=== PATIENT | female | born 1975 | race Caucasian/White ===

== ENCOUNTER → 2016-05-15 | Outpatient (CLI) | payer BC, OTHER ==
--- NOTE | 2016-05-15 16:55 | MAMMOGRAPHY REPORT ---
BILATERAL DIGITAL SCREENING MAMMOGRAM TOMOSYNTHESIS WITH CAD: 05/15/2016 CLINICAL HISTORY: Routine screening. Patient has no complaints. TECHNIQUE: Bilateral breast tomosynthesis in addition to standard 2D mammography was performed. Curr ent study was also evaluated with a Computer Aided Detection (CAD) system. COMPARISON: No prior exams were available for comparison. BREAST COMPOSITION: The tissue of both breasts is heterogeneously dense, which may obscure small ma sses. FINDINGS: There are a few scattered benign-appearing round and punctate microcalcifications in the b reasts. However, there is a very faint grouping of microcalcifications in the far posterior 1:00 ri ght breast that warrant additional spot magnification views. No other suspicious mass, architectural distortion or cluster of microcalcifications is seen bilater ally. IMPRESSION: ACR BI-RADS CATEGORY 0: INCOMPLETE EVALUATION: NEED ADDITIONAL IMAGING EVALUATION The there he faint grouping of microcalcifications in the 1:00 far posterior right breast needs rajinder tional evaluation. The patient will be called to schedule an appointment. Approximately 10% of breast cancers are not detected with mammography. A negative mammographic repor t should not delay biopsy if a clinically suggestive mass is present. Marie Stewart M.D. ay/:05/15/2016 16:25:32 Park Activities Coordinator: Lucina RIDLEY(John)(M), [facility] letter sent: Addl Imaging 0 BI-RADS Code: ACR BI-RADS Category 0: Incomplete Evaluation: Need Additional Imaging Evaluation
== END | disposition home or self-care (01) ==
LOC: C.MAMM 13:41
PROVIDERS: ATTEND Family Medicine
DX: Z12.31 Encounter for screening mammogram for malignant neoplasm of breast (principal); R92.0 Mammographic microcalcification found on diagnostic imaging of breast

== ENCOUNTER → 2016-05-23 | Outpatient (CLI) | payer BC, OTHER ==
--- NOTE | 2016-05-23 14:52 | MAMMOGRAPHY REPORT ---
UNILATERAL RIGHT DIGITAL DIAGNOSTIC MAMMOGRAM: 05/23/2016 CLINICAL HISTORY: Callback from screening mammogram for right breast calcifications. TECHNIQUE: Spot magnification right cc and ML views were obtained. COMPARISON: Comparison is made to exam dated: 05/15/2016 mammogram - [facility]. BREAST COMPOSITION: The tissue of the right breast is heterogeneously dense, which may obscure smal l masses. FINDINGS: Spot magnification views of the right breast demonstrate a small 6 mm cluster of faint pu nctate calcifications in the right upper inner quadrant far posteriorly. Given no priors to documen t stability, the calcifications are indeterminant. Recommend attempt at stereotactic biopsy for fur ther evaluation, although the calcifications may be too far posterior to biopsy with stereotactic gu idance. IMPRESSION: ACR BI-RADS CATEGORY 4: SUSPICIOUS Small 6 mm cluster of punctate calcifications in the right upper inner quadrant. The calcifications are indeterminate and biopsy is recommended for further evaluation. Recommend attempt at stereotac tic biopsy, although the calcifications may be too far posterior to biopsy with stereotactic guidanc e. A phone call was made to the physician's office to confirm faxed results were received. The patient has been verbally notified of the results. She tentatively scheduled the biopsy before leaving the department. Approximately 10% of breast cancers are not detected with mammography. A negative mammographic repor t should not delay biopsy if a clinically suggestive mass is present. Radha Mares M.D. ah/:05/23/2016 12:24:01 Supervisor Farm Equipment Maintenance: Jamila RIDLEY(John)(M), [facility] letter sent: Abnormal 4/5 BI-RADS Code: ACR BI-RADS Category 4: Suspicious
== END | disposition home or self-care (01) ==
LOC: C.MAMM 11:33
PROVIDERS: ATTEND Family Medicine
DX: R92.0 Mammographic microcalcification found on diagnostic imaging of breast (principal); R92.1 Mammographic calcification found on diagnostic imaging of breast

== ENCOUNTER → 2017-01-15 | Outpatient (CLI) | payer OTHER ==
--- NOTE | 2017-01-16 12:38 | MAMMOGRAPHY REPORT ---
UNILATERAL RIGHT DIGITAL DIAGNOSTIC MAMMOGRAM TOMOSYNTHESIS WITH CAD: 01/15/2017 CLINICAL HISTORY: 41-year-old woman presents for follow-up [facility] She underwent surgical excisional biopsy with preoperative needle and wire localization. Pathology results yielded "benign breast tissue with microglandular adenosis, columnar cell hyperpl merle with calcifications and sclerosing adenosis. No significant or convincing atypia or malignancy identified.". TECHNIQUE: Right breast tomosynthesis in addition to standard 2D mammography was performed. Spot mag nification right CC and ML views were also obtained. Current study was also evaluated with a Compute r Aided Detection (CAD) system. COMPARISON: Comparison is made to exams dated: 06/05/2016 stereotactic biopsy, 05/23/2016 mammogram, an d 05/15/2016 mammogram - . BREAST COMPOSITION: There are scattered areas of fibroglandular density in the right breast. FINDINGS: A linear scar marker overlies the 3:00 middle one third of the right breast, denoting the area of recent surgical excisional biopsy. There is an ovoid area of fat necrosis in the 3:00 development expert ior right breast at the surgical site. On the full-field right CC projection, faint amorphous microc alcifications in a cluster are seen in the far posterior medial aspect of the breast for which additi onal spot magnification views were obtained. No other obvious mass, focal area of architectural dist ortion, asymmetry or other calcifications are identified. The spot magnification views of the right breast demonstrate a 5 mm cluster of amorphous microcalcifi cations in the upper inner posterior breast. Based on the spot magnification CC view, these microcal cifications appear very similar to those identified on the 05/23/2016 spot magnification view. These microcalcifications are located 17 mm medial to the lucent fat necrosis denoting the surgical site. Review of the specimen radiograph does not definitely demonstrate microcalcifications from this repr esentative cluster despite the fact that some calcifications were identified at pathology. Based on the concern for under sampling error, would recommend repeat attempt at surgical biopsy, considering these microcalcifications were not amenable to stereotactic biopsy. IMPRESSION: ACR BI-RADS CATEGORY 4: SUSPICIOUS A faint 5 mm cluster of amorphous microcalcifications is seen in the upper inner far posterior right breast, 17 mm medial to the fat necrosis representing the surgical biopsy site. As no aircraft sales representative microcalcifications are definitely seen within the specimen radiograph from 07/31/2016, would recomm end surgical consultation for attempt at repeat surgical biopsy, given that these microcalcifications were not amenable to stereotactic biopsy. These results and recommendations were discussed with the patient at the time of the exam. Approximately 10% of breast cancers are not detected with mammography. A negative mammographic report should not delay biopsy if a clinically suggestive mass is present. Marie Stewart M.D. ay/:01/15/2017 15:59:54 Ecommerce Project Manager: Jamila Oseguera, letter sent: Abnormal 4/5 BI-RADS Code: ACR BI-RADS Category 4: Suspicious
== END | disposition home or self-care (01) ==
LOC: C.MAMM 09:44
PROVIDERS: ATTEND Surgery
DX: R92.8 Other abnormal and inconclusive findings on diagnostic imaging of breast (principal); N64.89 Other specified disorders of breast

== ENCOUNTER → 2017-07-30 | Outpatient (CLI) | payer OTHER ==
--- NOTE | 2017-07-30 15:22 | MAMMOGRAPHY REPORT ---
BILATERAL DIGITAL DIAGNOSTIC MAMMOGRAM TOMOSYNTHESIS WITH CAD: 07/30/2017 CLINICAL HISTORY: The patient is status post surgical excision of calcifications in the right upper o uter quadrant in February 2017 which yielded benign pathology. The patient is also due for annual ma mmography of the left breast. The patient reports no current complaints. TECHNIQUE: Breast tomosynthesis in addition to standard 2D mammography was performed. Current study was also evaluated with a Computer Aided Detection (CAD) system. Bilateral CC and MLO 2D and tomosyn thesis images were obtained. COMPARISON: Comparison is made to exams dated: 01/15/2017 mammogram, 06/05/2016 stereotactic biopsy, mammogram, and 05/15/2016 mammogram - [facility]. BREAST COMPOSITION: The tissue of both breasts is heterogeneously dense, which may obscure small mas ses. FINDINGS: A linear scar marker denotes a scar on the right upper inner breast. There are new expecte d postsurgical changes in the right upper inner quadrant from prior benign excisional biopsy, includi ng mild architectural distortion at the surgical bed. A few punctate benign-appearing calcifications are seen along the scar marker, which are shown to be dermal in location on the tomosynthesis images and are therefore benign. The remainder of both breasts demonstrate no suspicious masses, calcifications, or areas of websphere commerce architect ural distortion. Other scattered benign-appearing calcifications are not significantly changed. Mul tiple round/oval partially circumscribed and partially obscured masses are seen within the left upper outer breast, which have fluctuated slightly compared to the prior exam and are most compatible with fluctuating cysts. IMPRESSION: ACR BI-RADS CATEGORY 2: BENIGN Expected post surgical changes in the right breast from benign excisional biopsy, with no mammographi c evidence of malignancy in either breast. A 1 year screening mammogram is recommended. The patient has been verbally notified of the results. Approximately 10% of breast cancers are not detected with mammography. A negative mammographic report should not delay biopsy if a clinically suggestive mass is present. Radha Mares M.D. /:07/30/2017 12:16:03 Rope Silica Machine Operator: Yesenia LAMAS)(Angelica), [facility] letter sent: Normal 1/2 BI-RADS Code: ACR BI-RADS Category 2: Benign
== END | disposition home or self-care (01) ==
LOC: C.MAMM 11:06
PROVIDERS: ATTEND Surgery
DX: Z98.890 Other specified postprocedural states (principal)

== ENCOUNTER 2023-02-15 22:15 | Inpatient (IN) ==
[2023-02-15] MEDS ORDERED: ONDANSETRON INJ 2 MG/ML 2 ML VIAL IV STA (22:37)
[2023-02-15] MEDS ORDERED: fentaNYL citrate PF 100 MCG/2 ML VIAL IV STA (22:37)
[2023-02-15] MEDS ORDERED: SODIUM CHLORIDE 0.9% 1,000 ML IV ONE ×2 (22:37→23:24)
--- NOTE | 2023-02-15 22:41 | Emergency Department Note ---
Impression & Plan Bilateral hydronephrosis, Hypercalcemia, Bilateral ureteral calculi, CLAUS (acute kidney injury), Leukocytosis ED Provider Note HISTORY OF PRESENT ILLNESS: Patient is a 47-year-old female presenting with left flank pain. Patient reports that around 16:30 this afternoon she developed acute onset of left flank pain. She was just seen in the emergency department last night and diagnosed with a right-sided kidney stone. She states that when her left-sided pain started, she took 4 Advil and a dose of oxycodone. Denies any fevers. Reports the pain is a burning and continuous sensation. Reports that she did notice blood in her urine. Reports nausea and took a dose of Zofran at home, but had an episode of vomiting around 7 PM. Denies any history of abdominal surgeries ROS: as above PHYSICAL EXAM: Constitutional: Patient appears in no acute distress. HENT: Head: Normocephalic and atraumatic. Eyes: EOMI, PERRL Mouth/Throat: Mucous membranes moist. Neck: Trachea midline. Neck supple. Abdominal: Abdomen soft, no tenderness, rebound or guarding. Back: No midline spinal tenderness, no paraspinal tenderness, no CVA tenderness. Musculoskeletal: No edema, tenderness or deformity noted. Skin: Warm and dry. No rash, erythema, pallor or cyanosis Psychiatric: Appropriate mood and affect for situation. Neurological: Alert and keenly responsive. CN II-XII grossly intact, moving all extremities equally and fully. MDM: - Vitals signs showed hypertension - History obtained via patient. Patient presents with left flank pain. Patient reports that around 16:30 this afternoon she developed acute onset of left flank pain. She was seen in the emergency department last night and diagnosed a right-sided kidney stone. She reports that the left sided pain started and she took 4 Advil and a dose of oxycodone. Denies any fevers. Reports the pain is burning and constant in nature. Did notice blood in her urine. Currently complaining of significant pain and nausea. - Chronic conditions affecting care: None - Differential diagnoses include, but are not limited to: diverticulitis; ovarian cyst; ureteral calculi; UTI - Order placed for continuous cardiac monitoring. At this time, monitor showed rate of 71 bpm with normal sinus rhythm, per my interpretation. - External medical records reviewed. - Laboratory workup interpreted by myself showed leukocytosis (WBC 13.46) with left shift; hyponatremia (Na 133); CLAUS (Cr 2.52); elevated calcium (11.5) - Patient initially given 1L NS, 4 mg IV zofran and 50 mcg IV fentanyl. On reassessment, she is still vomiting. Given 5 mg IV reglan. - CT abdomen/pelvis wo contrast showed bilateral obstructing ureteral stones and bilateral hydronephrosis. - Discussed case with KELL Quijano with urology. Will come see patient. - An additional 1L NS and 2g IV rocephin given to patient - Discussion was had with nephrology social worker about patient's case and need for admission - Hospitalist consulted for admission - [facility] ASSESSMENT AND PLAN: Diagnosis: bilateral obstructing ureteral stones; bilateral hydronephrosis; CLAUS; leukocytosis Plan: admit Past Med/Surg History Medical History No chronic diseases present Surgical History No significant past surgical history Social History Smoking Status: Never smoker Preferred Language: Yoruba Feels Safe at Home: Yes Allergies Allergies Allergy/AdvReac Type Severity Reaction Status Date / Time amoxicillin Allergy SHORT OF Unverified 02/15/23 02:30 BREATH Home Meds Home Medications Medication Instructions Recorded Confirmed acetaminophen 500 mg tablet 500 mg PO Q6H PRN Pain 02/15/23 02/15/23 (Tylenol Extra Strength) aspirin 325 mg tablet 325 - 650 mg PO DAILY PRN Pain 02/15/23 02/15/23 Previous Rx's Medication Instructions Recorded ondansetron 4 mg disintegrating 4 - 8 mg PO Q8H PRN nausea and 02/15/23 tablet vomiting #14 tabs oxycodone 5 mg tablet 5 mg PO Q6H PRN pain #12 tabs 02/15/23 oxycodone 5 mg tablet 5 mg PO Q6H PRN pain #12 tabs 02/15/23 tamsulosin 0.4 mg capsule (Flomax) 0.4 mg PO DAILY #5 caps 02/15/23 Results & Data (ED) Vital Signs Vital Signs - 24 hr 02/15/23 22:21 02/15/23 22:47 Temperature 36.7 C Temperature Source Temporal Artery Scan Pulse Rate 71 Respiratory Rate 18 Respiratory Effort / Characteristics Non-Labored Spontaneous Non-Labored Spontaneous Respiratory Depth Normal Normal Respiratory Pattern Regular Blood Pressure 145/90 H Blood Pressure Mean 108 Blood Pressure Position Sitting Pulse Oximetry 100 Oxygen Delivery Method Room Air Sepsis Recent Fever Within 48 Hours No Sepsis New/Unexplained Change in Mental Status N/A Sepsis Action Taken by Nursing No Action Required Laboratory Data 02/15/23 22:35 02/15/23 22:35 Lab Results 02/15/23 02/15/23 Range/Units 22:35 22:35 WBC 13.46 H (4.8-10.8) K/ul RBC 4.25 (4.20-5.40) M/uL Hgb 12.6 (12.0-16.0) g/dl Hct 37.7 (37.0-47.0) % MCV 88.7 (80.0-100.0) fL MCH 29.6 (25.0-34.0) pg MCHC 33.4 (32.0-36.0) g/dL RDW Std Deviation 39.5 (36.4-46.3) fL RDW Coeff of Jeyson 12.2 (11.5-14.5) % Plt Count 249 (130-400) K/uL MPV 9.4 (9.4-12.4) fL Immature Gran % (Auto) 0.4 % Neut % (Auto) 84.4 % Lymph % (Auto) 7.4 % [place] % (Auto) 7.0 % Eos % (Auto) 0.5 % Baso % (Auto) 0.3 % Neut # (Auto) 11.36 H (1.40-6.50) K/uL Lymph # (Auto) 1.00 L (1.20-3.40) K/uL [place] # (Auto) 0.94 H (0.11-0.59) K/uL Eos # (Auto) 0.07 (0.00-0.50) K/uL Baso # (Auto) 0.04 (0.00-0.20) K/uL Immature Gran # (Auto) 0.05 (0.01-0.20) K/uL Sodium 133 L (136-145) mmol/L Potassium 3.6 (3.5-5.1) mmol/L Chloride 104 (98-107) mmol/L Carbon Dioxide 20 L (21-32) mmol/L Anion Gap 9 (3-11) BUN 21 (6-23) mg/dl Creatinine 2.52 H D (0.6-1.2) mg/dl Est Cr Clr Drug Dosing Not Reportable Est GFR ( Amer) 25.1 ml/min Est GFR (Non-Af Amer) 21.6 ml/min BUN/Creatinine Ratio 8.3 L (10-20) Glucose 171 H (70-99(Fasting)) mg/dl Calcium 11.5 H (8.6-10.3) mg/dl Total Bilirubin 0.4 (0.2-1.0) mg/dl AST 27 (13-39) U/L ALT 48 (7-52) U/L Alkaline Phosphatase 99 (34-104) U/L Total Protein 6.8 (6.0-8.3) gm/dl Albumin 4.2 (3.4-5.0) gm/dl Globulin 2.6 (2.5-4.0) gm/dl Albumin/Globulin Ratio 1.6 (0.9-2) Administered Medications Sodium Chloride (Nss) 1,000 mls @ 999 mls/hr IV .Q1H1M ONE Stop: 02/15/23 23:37 Last Admin: 02/15/23 22:43 Dose: 999 mls/hr Documented By: FESTUS Discontinued Medications Fentanyl Citrate (Fentanyl Citrate Pf 100 Mcg/2 Ml Vial) 50 mcg IV NOW STA Stop: 02/15/23 22:38 Last Admin: 02/15/23 22:43 Dose: 50 mcg Documented By: FESTUS Metoclopramide HCl (Metoclopramide Hcl Inj 5 Mg/Ml 2 Ml Vial) 5 mg IV ONE ONE Stop: 02/15/23 23:12 Last Admin: 02/15/23 23:20 Dose: 5 mg Documented By: JC Ondansetron HCl (Ondansetron Inj 2 Mg/Ml 2 Ml Vial) 4 mg IV NOW STA Stop: 02/15/23 22:38 Last Admin: 02/15/23 22:43 Dose: 4 mg Documented By: FESTUS Imaging Data Radiologist's Impression: Abdomen/Pelvis CT 02/15/23 22:39 CT SCAN OF THE ABDOMEN AND PELVIS WITHOUT IV CONTRAST CLINICAL HISTORY: Left flank pain COMPARISON STUDY: Abdominal CT performed earlier the same day 02/15/2023. TECHNIQUE: CT scan of the abdomen and pelvis is performed from the lung bases to the proximal femora. Images are reviewed in the axial, sagittal, and coronal planes. IV contrast was not administered for this examination. A dose lowering technique was utilized adhering to the principles of ALARA. CT DOSE: 1336.92 mGy.cm FINDINGS: Lung bases: The heart is normal in size and without pericardial effusion. There is trace right pleural effusion and dependent atelectasis. Liver: The unenhanced liver is normal in size, contour, and attenuation. There is no intrahepatic biliary ductal dilatation. Gallbladder: Unremarkable. Spleen: Normal in size and attenuation. Pancreas: Unremarkable. Adrenal glands: Unremarkable. Kidneys: The unenhanced kidneys are normal in size. There is a 5 mm obstructing calculus at the left vesicoureteral junction seen on image #356. This causes moderate left hydroureteronephrosis. There is a 7 mm obstructing calculus in the distal right ureter just below the pelvic inlet seen on image #312. This causes moderate to severe hydronephrosis on the right. No additional calculi are identified in either kidney. There is mild left-sided perinephric stranding. There is no evidence of contour deforming renal mass lesion. Abdominal vasculature: The abdominal aorta is normal in course and caliber. Bowel: There is no bowel obstruction. The appendix is well-visualized and normal. Peritoneum: There is no intraperitoneal free air or abdominal ascites. There is a fat-containing umbilical hernia. Lymphadenopathy: None. Pelvic viscera: The bladder is decompressed and not well evaluated. The uterus and adnexa are normal as visualized. Trace free fluid is seen in the cul-de-sac. Skeletal structures: No lytic or blastic lesions are seen. IMPRESSION: 1. Bilateral obstructing ureteral stones and bilateral hydronephrosis as above. This is similar to today's earlier examination. 2. No additional renal calculi are identified in either kidney. 3. Trace free fluid pelvis is nonspecific and likely physiologic. ACT 112: Negative or not required by law. Electronically signed by: Дмитрий Barber M.D. 02/15/2023 11:13 PM Discharge Plan Visit Data Chief Complaint: Flank Pain Stated Complaint: LEFT FLANK PAIN - KIDNEY STONE ED Provider: Lizet Lane Discharge Problem: Bilateral hydronephrosis, Hypercalcemia, Bilateral ureteral calculi, CLAUS (acute kidney injury), Leukocytosis Forms Stand Alone Forms: [facility] [employer] Prescriptions Prescriptions: No Action aspirin 325 mg Tablet 325 - 650 mg PO DAILY PRN (Reason: Pain) acetaminophen [Tylenol Extra Strength] 500 mg Tablet 500 mg PO Q6H PRN (Reason: Pain) oxycodone 5 mg tablet 5 mg PO Q6H PRN (Reason: pain) Qty: 12 0RF tamsulosin [Flomax] 0.4 mg capsule 0.4 mg PO DAILY Qty: 5 0RF oxycodone 5 mg tablet 5 mg PO Q6H PRN (Reason: pain) Qty: 12 0RF ondansetron 4 mg tablet,disintegrating 4 - 8 mg PO Q8H PRN (Reason: nausea and vomiting) Qty: 14 0RF Referrals Referrals: Amaris Mariscal DO [Primary Care Provider] -
[2023-02-15 22:50] LABS: Basophils # (auto) 0.04 K/uL (0.00-0.20); Basophils % (auto) 0.3 %; Eosinophils # (auto) 0.07 K/uL (0.00-0.50); Eosinophils % (auto) 0.5 %; Hematocrit (blood only) 37.7 % (37.0-47.0); Hemoglobin 12.6 g/dl (12.0-16.0); Immature Granulocytes # (auto) 0.05 K/uL (0.01-0.20); Immature Granulocytes % (auto) 0.4 %; Lymphocytes % (auto) 7.4 %; Mean Corpuscular Hemoglobin 29.6 pg (25.0-34.0); Mean Corpuscular Hgb Conc 33.4 g/dL (32.0-36.0); Mean Corpuscular Volume 88.7 fL (80.0-100.0); Mean Platelet Volume 9.4 fL (9.4-12.4); Monocytes # (auto) 0.94 K/uL (0.11-0.59); Neutrophils # (auto) 11.36 K/uL (1.40-6.50); Neutrophils % (auto) 84.4 %; Platelet Count 249 K/uL (130-400); RDW Coefficient of Variation 12.2 % (11.5-14.5); RDW Standard Deviation 39.5 fL (36.4-46.3); Red Blood Count 4.25 M/uL (4.20-5.40); White Blood Count 13.46 K/ul (4.8-10.8)
[2023-02-15] MEDS ORDERED: METOCLOPRAMIDE HCL INJ 5 MG/ML 2 ML VIAL IV ONE (23:11)
--- NOTE | 2023-02-15 23:15 | CT Scan Report ---
CT SCAN OF THE ABDOMEN AND PELVIS WITHOUT IV CONTRAST CLINICAL HISTORY: Left flank pain COMPARISON STUDY: Abdominal CT performed earlier the same day 02/15/2023. TECHNIQUE: CT scan of the abdomen and pelvis is performed from the lung bases to the proximal femora. Images are reviewed in the axial, sagittal, and coronal planes. IV contrast was not administered for this examination. A dose lowering technique was utilized adhering to the principles of ALARA. CT DOSE: 1336.92 mGy.cm FINDINGS: Lung bases: The heart is normal in size and without pericardial effusion. There is trace right pleura l effusion and dependent atelectasis. Liver: The unenhanced liver is normal in size, contour, and attenuation. There is no intrahepatic herb iary ductal dilatation. Gallbladder: Unremarkable. Spleen: Normal in size and attenuation. Pancreas: Unremarkable. Adrenal glands: Unremarkable. Kidneys: The unenhanced kidneys are normal in size. There is a 5 mm obstructing calculus at the left vesicoureteral junction seen on image #356. This causes moderate left hydroureteronephrosis. There is a 7 mm obstructing calculus in the distal right ureter just below the pelvic inlet seen on image #31 2. This causes moderate to severe hydronephrosis on the right. No additional calculi are identified i n either kidney. There is mild left-sided perinephric stranding. There is no evidence of contour defo rming renal mass lesion. Abdominal vasculature: The abdominal aorta is normal in course and caliber. Bowel: There is no bowel obstruction. The appendix is well-visualized and normal. Peritoneum: There is no intraperitoneal free air or abdominal ascites. There is a fat-containing umbi lical hernia. Lymphadenopathy: None. Pelvic viscera: The bladder is decompressed and not well evaluated. The uterus and adnexa are normal as visualized. Trace free fluid is seen in the cul-de-sac. Skeletal structures: No lytic or blastic lesions are seen. IMPRESSION: 1. Bilateral obstructing ureteral stones and bilateral hydronephrosis as above. This is similar to to day's earlier examination. 2. No additional renal calculi are identified in either kidney. 3. Trace free fluid pelvis is nonspecific and likely physiologic. ACT 112: Negative or not required by law. Electronically signed by: Дмитрий Barber M.D. 02/15/2023 11:13 PM
[2023-02-15 23:17] LABS: Alanine Aminotransferase 48 U/L (7-52); Albumin Globulin Ratio 1.6 (0.9-2); Albumin Level 4.2 gm/dl (3.4-5.0); Alkaline Phosphatase 99 U/L (34-104); Anion Gap 9 (3-11); Aspartate Aminotransferase 27 U/L (13-39); BUN Creatinine Ratio 8.3 (10-20); Bilirubin,Total 0.4 mg/dl (0.2-1.0); Blood Urea Nitrogen 21 mg/dl (6-23); Calcium 11.5 mg/dl (8.6-10.3); Carbon Dioxide 20 mmol/L (21-32); Chloride 104 mmol/L (98-107); Est GFR (African American) 25.1 ml/min; Est GFR (Non-African American) 21.6 ml/min; Globulin 2.6 gm/dl (2.5-4.0); Glucose 171 mg/dl (70-99(Fasting)); Potassium 3.6 mmol/L (3.5-5.1); Sodium 133 mmol/L (136-145); Total Protein 6.8 gm/dl (6.0-8.3)
[2023-02-15] MEDS ORDERED: cefTRIAXone SODIUM 2,000 MG/50 ML BAG IV STA (23:25)
--- NOTE | 2023-02-15 23:42 | History & Physical Report ---
Date of Service February 15, 2023 Assessment & Plan (1) Bilateral hydronephrosis: Plan: 47yo female presenting with bilateral flank pain, nausea, vomiting and hematuria. Found to have bilateral nephrolithiasis - 7mm stone in the right distal ureter and 5mm stone in the left vesicoureteral junction. Elevated WBC count=13. Elevated Cr at 2.52 from baseline of appx 1 -Admit to medical -Follow urine culture -Keep patient NPO -Continue IVF with LR at 125mL/hr x 2L -Ciprofloxacin 400mg IV BID -Tylenol PRN -Reglan PRN -Morphine PRN -Urology consultation appreciated -Appreciate Urology assistance. Possible cystoscopy in AM if patient does not pass stones (2) Hypercalcemia: Plan: Elevated Ca at 11.5. Possible etiology of patient's new renal stones -Check Ionized calcium -Check PTH and Vitamin D levels History of Present Illness Chief Complaint: left sided flank pain Primary Care Provider: Amaris Mariscal DO Steph Thomas is a 47yo female presenting with left sided flank pain. Patient presents with left sided flank pain that began acutely around 16:30. Pain severe, she took Advil and Oxycodone for pain relief. She also reports nausea with 3 episodes of non-bloody/non-bilious vomiting. She has noted some hematuria as well. She feels that she needs to strain to start her urinary screen. She was seen in the ER last night and found to have right sided renal stone. Her first renal stone was in October 2022. In the ER she is afebrile, HD stable ER Coruse: Ciprofloxacin Reglan Zofran NSS Allergies Allergy/AdvReac Type Severity Reaction Status Date / Time amoxicillin Allergy SHORT OF Unverified 02/15/23 02:30 BREATH Home Medications Medication Instructions Recorded Confirmed Type acetaminophen 500 mg tablet 500 mg PO Q6H PRN Pain 02/15/23 02/15/23 History (Tylenol Extra Strength) aspirin 325 mg tablet 325 - 650 mg PO DAILY PRN Pain 02/15/23 02/15/23 History ondansetron 4 mg disintegrating 4 - 8 mg PO Q8H PRN nausea and 02/15/23 Rx tablet vomiting #14 tabs oxycodone 5 mg tablet 5 mg PO Q6H PRN pain #12 tabs 02/15/23 Rx oxycodone 5 mg tablet 5 mg PO Q6H PRN pain #12 tabs 02/15/23 Rx tamsulosin 0.4 mg capsule (Flomax) 0.4 mg PO DAILY #5 caps 02/15/23 Rx Past Med/Surg History Medical History No chronic diseases present Surgical History No significant past surgical history Social History Smoking Status: Never smoker Second Hand Exposure: No; Do You Dip or Chew Tobacco: No; Tobacco Cessation Education Requested by Patient: No Hx Alcohol Use: Yes Hx Substance Use: No Preferred Language: Mozambican Communication Ability: Effective Police Worker Required: No Beliefs That Will Affect Care: None Current Living Situation: Alone Other Information That Helps Us Care for You: No Feels Safe at Home: Yes Safety Concerns: Feels Safe At This Time Assistive Devices: Glasses Review of Systems Review of Systems: All systems reviewed & are unremarkable except as noted in HPI & below Physical Exam Physical Exam: General: patient resting comfortably, NAD, non-toxic in appearance, AA&O x 4 Skin: warm, dry, intact, no rashes or lesions HEENT: NC/AT, PERRL, EOMI, anicteric sclera, conjunctiva without injection, external ear normal to inspection and nontender, nares patent, moist mucus membranes, dentition intact, no oropharyngeal lesions, neck supple, trachea midline, no LAD, no thyromegaly, no JVD Heart: +S1/S2, regular, no m/r/g Lungs: equal air entry bilaterally, no rales/rhonchi/wheezes Abd: +BS, soft, NT/ND, no masses/organomegaly/ascites Ext: warm, 2+ pulses in UE/LE bilaterally, no clubbing/cyanosis or edema Neuro: nonfocal, patient AA&O x 4, speech intact, no facial droop, moving all extremities on command with equal strength 5/5 Results & Data Results & Data Vital Signs (Past 12 Hours) Vital Signs Temp Pulse Resp BP Pulse Ox O2 Del Method 02/15/23 22:21 36.7 C 71 18 145/90 H 100 Room Air Laboratory Results Laboratory Results WBC 13.46 K/ul (4.8-10.8) H 02/15/23 22:35 RBC 4.25 M/uL (4.20-5.40) 02/15/23 22:35 Hgb 12.6 g/dl (12.0-16.0) 02/15/23 22:35 Hct 37.7 % (37.0-47.0) 02/15/23 22:35 MCV 88.7 fL (80.0-100.0) 02/15/23 22:35 MCH 29.6 pg (25.0-34.0) 02/15/23 22:35 MCHC 33.4 g/dL (32.0-36.0) 02/15/23 22:35 RDW Std Deviation 39.5 fL (36.4-46.3) 02/15/23 22:35 RDW Coeff of Jeyson 12.2 % (11.5-14.5) 02/15/23 22:35 Plt Count 249 K/uL (130-400) 02/15/23 22:35 MPV 9.4 fL (9.4-12.4) 02/15/23 22:35 Immature Gran % (Auto) 0.4 % 02/15/23 22:35 Neut % (Auto) 84.4 % 02/15/23 22:35 Lymph % (Auto) 7.4 % 02/15/23 22:35 Perkins % (Auto) 7.0 % 02/15/23 22:35 Eos % (Auto) 0.5 % 02/15/23 22:35 Baso % (Auto) 0.3 % 02/15/23 22:35 Neut # (Auto) 11.36 K/uL (1.40-6.50) H 02/15/23 22:35 Lymph # (Auto) 1.00 K/uL (1.20-3.40) L 02/15/23 22:35 Perkins # (Auto) 0.94 K/uL (0.11-0.59) H 02/15/23 22:35 Eos # (Auto) 0.07 K/uL (0.00-0.50) 02/15/23 22:35 Baso # (Auto) 0.04 K/uL (0.00-0.20) 02/15/23 22:35 Immature Gran # (Auto) 0.05 K/uL (0.01-0.20) 02/15/23 22:35 Sodium 133 mmol/L (136-145) L 02/15/23 22:35 Potassium 3.6 mmol/L (3.5-5.1) 02/15/23 22:35 Chloride 104 mmol/L (98-107) 02/15/23 22:35 Carbon Dioxide 20 mmol/L (21-32) L 02/15/23 22:35 Anion Gap 9 (3-11) 02/15/23 22:35 BUN 21 mg/dl (6-23) 02/15/23 22:35 Creatinine 2.52 mg/dl (0.6-1.2) H D 02/15/23 22:35 Est Cr Clr Drug Dosing Not Reportable 02/15/23 22:35 Est GFR ( Amer) 25.1 ml/min 02/15/23 22:35 Est GFR (Non-Af Amer) 21.6 ml/min 02/15/23 22:35 BUN/Creatinine Ratio 8.3 (10-20) L 02/15/23 22:35 Glucose 171 mg/dl (70-99(Fasting)) H 02/15/23 22:35 Calcium 11.5 mg/dl (8.6-10.3) H 02/15/23 22:35 Total Bilirubin 0.4 mg/dl (0.2-1.0) 02/15/23 22:35 AST 27 U/L (13-39) 02/15/23 22:35 ALT 48 U/L (7-52) 02/15/23 22:35 Alkaline Phosphatase 99 U/L (34-104) 02/15/23 22:35 Total Protein 6.8 gm/dl (6.0-8.3) 02/15/23 22:35 Albumin 4.2 gm/dl (3.4-5.0) 02/15/23 22:35 Globulin 2.6 gm/dl (2.5-4.0) 02/15/23 22:35 Albumin/Globulin Ratio 1.6 (0.9-2) 02/15/23 22:35 Urine Color Yellow 02/16/23 Unknown Urine Appearance Cloudy (Clear) A 02/16/23 Unknown Urine pH 6.0 (4.5-7.5) 02/16/23 Unknown Ur Specific [place] 1.010 (1.000-1.030) 02/16/23 Unknown Urine Protein Trace (Negative) H 02/16/23 Unknown Urine Glucose (UA) Negative (Negative) 02/16/23 Unknown Urine Ketones Negative (Negative) 02/16/23 Unknown Urine Blood 3+ (Negative) H 02/16/23 Unknown Urine Nitrite Negative (Negative) 02/16/23 Unknown Urine Bilirubin Negative (Negative) 02/16/23 Unknown Urine Urobilinogen Negative (Negative) 02/16/23 Unknown Ur Leukocyte Esterase 2+ (Negative) H 02/16/23 Unknown Urine WBC (Auto) 10-30 /hpf (0-5) H 02/16/23 Unknown Urine RBC (Auto) >30 /hpf (0-4) H 02/16/23 Unknown U Hyaline Cast (Auto) 10-30 /lpf (0-5) H 02/16/23 Unknown U Epithel Cells (Auto) 20-30 /lpf (0-5) H 02/16/23 Unknown Urine Bacteria (Auto) Negative (Negative) 02/16/23 Unknown Calcium Oxalate Crystal Present (None Prsent) A 02/16/23 Unknown Urine Yeast Not Reportable 02/16/23 Unknown Impressions Abdomen/Pelvis CT 02/15/23 22:39 CT SCAN OF THE ABDOMEN AND PELVIS WITHOUT IV CONTRAST CLINICAL HISTORY: Left flank pain COMPARISON STUDY: Abdominal CT performed earlier the same day 02/15/2023. TECHNIQUE: CT scan of the abdomen and pelvis is performed from the lung bases to the proximal femora. Images are reviewed in the axial, sagittal, and coronal planes. IV contrast was not administered for this examination. A dose lowering technique was utilized adhering to the principles of ALARA. CT DOSE: 1336.92 mGy.cm FINDINGS: Lung bases: The heart is normal in size and without pericardial effusion. There is trace right pleural effusion and dependent atelectasis. Liver: The unenhanced liver is normal in size, contour, and attenuation. There is no intrahepatic biliary ductal dilatation. Gallbladder: Unremarkable. Spleen: Normal in size and attenuation. Pancreas: Unremarkable. Adrenal glands: Unremarkable. Kidneys: The unenhanced kidneys are normal in size. There is a 5 mm obstructing calculus at the left vesicoureteral junction seen on image #356. This causes moderate left hydroureteronephrosis. There is a 7 mm obstructing calculus in the distal right ureter just below the pelvic inlet seen on image #312. This causes moderate to severe hydronephrosis on the right. No additional calculi are identified in either kidney. There is mild left-sided perinephric stranding. There is no evidence of contour deforming renal mass lesion. Abdominal vasculature: The abdominal aorta is normal in course and caliber. Bowel: There is no bowel obstruction. The appendix is well-visualized and normal. Peritoneum: There is no intraperitoneal free air or abdominal ascites. There is a fat-containing umbilical hernia. Lymphadenopathy: None. Pelvic viscera: The bladder is decompressed and not well evaluated. The uterus and adnexa are normal as visualized. Trace free fluid is seen in the cul-de-sac. Skeletal structures: No lytic or blastic lesions are seen. IMPRESSION: 1. Bilateral obstructing ureteral stones and bilateral hydronephrosis as above. This is similar to today's earlier examination. 2. No additional renal calculi are identified in either kidney. 3. Trace free fluid pelvis is nonspecific and likely physiologic. ACT 112: Negative or not required by law. Electronically signed by: Дмитрий Barber M.D. 02/15/2023 11:13 PM PG Care Time/CCT Total # of Minutes Spent Total Time Spent with Patient: Total time spent is greater than 50% in coordination of care (as documented) at patient's floor/unit and/or counseling patient: Coding Level of Care Code 12204 INT INP/OBS CARE 2/55MIN Diagnoses Bilateral hydronephrosis N13.30 Hypercalcemia E83.52
[2023-02-15] MEDS ORDERED: CIPROFLOXACIN / D5W 400 MG/200 ML BAG IV STA (23:51)
[2023-02-15] MEDS ORDERED: Patient's HEIGHT &/or WEIGHT Needed STA (23:52)
--- NOTE | 2023-02-15 23:57 | Urology Consultation ---
I have discussed Ms Thomas's case with Raghav Rivero PA-C and agree with the above documentation. In the setting of bilateral ureteral stones and CLAUS, we will plan for cystoscopy, bilateral retrograde pyelogram and bilateral ureteral stent placement. -Nathan Simon MD. Date of Consultation February 15, 2023 Assessment & Plan (1) Bilateral hydronephrosis: I discussed with the treating emergency room physician and the patient is being admitted on the hospitalist service. We recommend proceeding as follows: Provide analgesics Provide antiemetics Provided the fluid for hydration Maintain n.p.o. status Flomax can be utilized to promote kidney stone expulsion As there is concern the patient may have an underlying urinary tract infection antibiotics will be initiated. The treating service has initiated Flomax. As the patient has evidence of acute kidney injury nephrotoxins should be avoided and serial labs to be followed Due to the findings on CT scan of bilateral extracting kidney stones I suspect the patient would benefit from a cystoscopy. I discussed with my attending physician Dr. Simon we have added the patient to the operating room schedule for 02/16/2023 at which time the patient will undergo cystoscopy with probable bilateral ureteral stent placement. I did discuss with the patient that it is likely that she will require a second lithotripsy procedure for definitive treatment of her stones Additional recommendations be forthcoming based on her clinical course as it unfolds (2) Bilateral ureteral calculi: (3) CLAUS (acute kidney injury): History of Present Illness Reason for Consultation: Bilateral nephrolithiasis History of Present Illness This is a 47-year-old female who presented to the emergency department [facility] on 02/14/2023 secondary to right-sided flank pain. Patient said that the flank pain radiated to the front of her abdomen and was ongoing for approximately 1 hour prior to her emergency department visit. Because of the severity of the pain she did present to the emergency department. During this emergency department visit the patient did undergo a CT scan of the abdomen pelvis that showed the patient had a 5 mm right distal ureteral stone causing right hydronephrosis. She was also noted to have left hydronephrosis secondary to a 6 mm kidney stone at the left ureterovesical junction. Laboratories performed during this emergency department visit showed a white blood cell count was elevated at 13.0. Hemoglobin, hematocrit, and platelet count were normal. Patient did have a chemistry profile during this visit that showed sodium and potassium are normal. Her BUN and creatinine were noted to be normal. There is no elevation of the patient's LFTs or lipase. Urinalysis did show cloudy urine which was negative for nitrites. There is 2+ leukocyte Estrace and 10-30 white blood cells per high-power field. The specimen was negative for bacteria and a test was negative. The patient was able to be discharged home from the for mentioned emergency department visit however at approximately 4:30 PM today which was 02/15/2023 she developed severe left-sided flank pain which was similar to what she experienced on the right during her previous visit. The pain radiated to the front of her abdomen. The patient has had associated nausea and vomiting. She specifically denies any fevers, shakes, or chills. Patient denies any dysuria but does note that she has not been able to take much in the way of oral intake without nausea and vomiting and her last void was approximately 1:00 PM on 02/15/2023. The patient does note that she has a prior history of kidney stones as she had a stone in October 2022. She notes that she was able to pass the stone without any intervention and she currently does not follow with a urologist. The patient does note that her most recent oral intake was at approximately 8:00 PM on 02/15/2023 at which time she had a baked potato. She also notes that she has been drinking water up to the time of my visit with her in the emergency department. Since arrival to the hospital the patient has had labs and imaging which independent reviewed. CT scan of the abdomen and pelvis during this visit shows that patient has bilateral obstructing ureteral stones with bilateral hydronephrosis. The kidney stone on the left is at the vesicoureteral junction and is approximately 5 mm in size. The kidney stone on the right is approximately 7 mm and is located just below the pelvic inlet. Mild perinephric stranding on the left side is noted. Labs include a CBC her white blood cell count is elevated at 13.4. Hemoglobin and hematocrit along with a platelet count are normal. Chemistry profile shows sodium is 133 with a normal potassium. Her BUN is 21 with a creatinine of 2.5. At the time of my interview with the patient she was resting comfortably in bed and she was in no distress. Her pain was well controlled. Concerning past medical history the patient only has a past medical history of nephrolithiasis Concerning past surgical history she has undergone a breast biopsy with benign results Allergies the patient says that she is allergic to penicillin and does describe an anaphylactic reaction Concerning social history she does not smoke or vape. She consumes maybe 2 alcoholic beverages per month at most. Concerning family history she denies any family history of nephrolithiasis Allergies Allergy/AdvReac Type Severity Reaction Status Date / Time amoxicillin Allergy SHORT OF Unverified 02/15/23 02:30 BREATH Home Medications Medication Instructions Recorded Confirmed Type acetaminophen 500 mg tablet 500 mg PO Q6H PRN Pain 02/15/23 02/15/23 History (Tylenol Extra Strength) aspirin 325 mg tablet 325 - 650 mg PO DAILY PRN Pain 02/15/23 02/15/23 History ondansetron 4 mg disintegrating 4 - 8 mg PO Q8H PRN nausea and 02/15/23 Rx tablet vomiting #14 tabs oxycodone 5 mg tablet 5 mg PO Q6H PRN pain #12 tabs 02/15/23 Rx oxycodone 5 mg tablet 5 mg PO Q6H PRN pain #12 tabs 02/15/23 Rx tamsulosin 0.4 mg capsule (Flomax) 0.4 mg PO DAILY #5 caps 02/15/23 Rx Patient History Medical History No chronic diseases present Surgical History No significant past surgical history Social History Smoking Status: Never smoker Preferred Language: Lao Feels Safe at Home: Yes Review of Systems Constitutional: no fever and no chills Eyes: + corrective lenses Ear, Nose, Mouth, Throat: no hearing loss Respiratory: no cough and no dyspnea Cardiovascular: no chest pain Gastrointestinal: + abdominal pain (Radiating from flanks bilaterally), + nausea and + vomiting Genitourinary: as per Subjective / HPI Musculoskeletal: + back pain (Bilateral flank pain) Integumentary: no rash Neurologic: no localized weakness Physical Exam Constitutional: WD/WN, vitals as above Eyes: Wears glasses ENMT: Ears: no hearing impairment and no external ear abnormality Mouth: no oropharynx abnormality Neck: trachea midline Respiratory: normal respiratory effort, lungs clear to auscultation Cardiovascular: Rate/Rhythm: regular rate and regular rhythm Vessels: dorsalis pedis pulses present and radial pulses present Gastrointestinal (Abdomen): Abdomen soft, nonrigid, nondistended. There is no pain with palpation. There is no rebound tenderness or guarding. Musculoskeletal: No calf tenderness Skin: no rashes Neurologic: moves all extremities Psychiatric: A+Ox3, euthymic affect Genitourinary: At the time of my exam the patient did not have any CVA tenderness bilaterally with percussion Results & Data Vital Signs (Past 12 Hours) Vital Signs Temp Pulse Resp BP Pulse Ox O2 Del Method 02/15/23 22:21 36.7 C 71 18 145/90 H 100 Room Air PG Care Time/CCT Total # of Minutes Spent Total Time Spent with Patient: Total time spent is greater than 50% in coordination of care (as documented) at patient's floor/unit and/or counseling patient: Coding Level of Care Code 40700 IN/OBS CONSULT LVL 5,80M Diagnoses Bilateral hydronephrosis N13.30 Bilateral ureteral calculi N20.1 CLAUS (acute kidney injury) N17.9
[2023-02-16] MEDS ORDERED: ONDANSETRON INJ 2 MG/ML 2 ML VIAL IV PRN ×2 (00:27→10:49)
[2023-02-16] MEDS ORDERED: MoRPHine SULFATE 4 MG/ML 1 ML CARP\\VIAL IV PRN (00:27)
[2023-02-16] MEDS ORDERED: ACETAMINOPHEN 325 MG TAB PO PRN (00:27)
[2023-02-16] MEDS ORDERED: METOCLOPRAMIDE HCL INJ 5 MG/ML 2 ML VIAL IV PRN (00:27)
[2023-02-16] MEDS ORDERED: MoRPHine SULFATE 2 MG/ML CARP IV PRN (00:27)
[2023-02-16] MEDS ORDERED: POLYETHYLENE (MIRALAX) 17 GM PACK PO PRN (00:27)
[2023-02-16] MEDS ORDERED: CIPROFLOXACIN / D5W 400 MG/200 ML BAG IV SCH (00:27)
[2023-02-16] MEDS: SODIUM CHLORIDE 0.9% 1,000 ML IV SCH ×3 (00:49→12:35)
[2023-02-16 01:58] LABS: Appearance Urine Cloudy (Clear); Bacteria Urine Automated Negative (Negative); Bilirubin Urine Negative (Negative); Blood Urine 3+ (Negative); Color Urine Yellow; Epithelial Cell Urine Auto 20-30 /lpf (0-5); Glucose Urine UA Negative (Negative); Ketones Urine Negative (Negative); Leukocyte Esterase Urine 2+ (Negative); Nitrite Urine Negative (Negative); Protein Urine Trace (Negative); Urobilinogen Urine Negative (Negative)
[2023-02-16 02:14] LABS: Calcium Oxalate Crystals Urine Present (None Prsent)
[2023-02-16 02:15] LABS: RBC Urine Automated >30 /hpf (0-4)
[2023-02-16] MEDS ORDERED: LACTATED RINGER'S 1,000 ML IV SCH (04:15)
[2023-02-16 07:25] LABS: Hematocrit (blood only) 32.8 % (37.0-47.0); Hemoglobin 11.2 g/dl (12.0-16.0); Mean Corpuscular Hemoglobin 29.9 pg (25.0-34.0); Mean Corpuscular Hgb Conc 34.1 g/dL (32.0-36.0); Mean Corpuscular Volume 87.5 fL (80.0-100.0); Mean Platelet Volume 9.6 fL (9.4-12.4); Platelet Count 205 K/uL (130-400); RDW Coefficient of Variation 12.2 % (11.5-14.5); RDW Standard Deviation 39.5 fL (36.4-46.3); Red Blood Count 3.75 M/uL (4.20-5.40); White Blood Count 8.71 K/ul (4.8-10.8)
--- NOTE | 2023-02-16 07:30 | Hospitalist Progress Note ---
Date of Service February 16, 2023 Assessment & Plan (1) Bilateral hydronephrosis: (2) Hypercalcemia: Plan 47yo female presenting with bilateral flank pain, nausea, vomiting and hematuria. Found to have bilateral nephrolithiasis - 7mm stone in the right distal ureter and 5mm stone in the left vesicoureteral junction. #Bilateral hydronephrosis #CLAUS -Elevated WBC count=13. Elevated Cr at 2.52 from baseline of appx 1 -Continue IVF with LR at 125mL/hr x 2L -Ciprofloxacin 400mg IV BID; Follow urine culture -Tylenol PRN, Reglan PRN, Morphine PRN -Urology consultation appreciated -OR on 02/16 for cystoscopy with ureteral stent placement. -We will need follow-up with urology in 1 to 2 weeks for stone removal and stent removal. -BMP after OR continues to show an elevated creatinine of 1.79. We will monitor patient overnight and check BMP in the morning. -Anticipate d/c home in am #Hypercalcemia -Elevated Ca at 11.5. Possible etiology of patient's new renal stones -Labs also showed a elevated PTH, low vitamin D, and a elevated ionized calcium. -Should have follow-up with PCP regarding further work-up of possible primary hyperparathyroidism. -We will check calcium levels in the a.m. and decide if empiric treatment with a calcium reducing agent is necessary until pcp eval. -TSH normal. Admission and Anticipated Discharge Date Admission Date: February 15, 2023 Supervising Physician Co-Signing Physician Notes Resident Physician Supervision Note: I independently interviewed and examined the patient and verified the ace history and physical, reviewed labs and image studies and agree with resident findings and care plan. Subjective Patient seen bedside this morning. She is currently n.p.o. awaiting to have surgery by urology today. She denies any significant issues or pain. Urinating okay. Review of Systems Review of Systems: All systems reviewed & are unremarkable except as noted in Subjective Physical Exam Physical Exam: Constitutional: well-appearing, no acute distress HEENT: NCAT, no conjunctival injection CV: regular rhythm, no murmur appreciated, extremities well-perfused, no LE edema Resp: CTABL, no wheezes/rales/rhonchi appreciated, no increased work of breathing GI: soft, nondistended, nontender, BS normoactive MSK: no gross deformities appreciated Skin: warm, dry, no rash appreciated Neuro: alert, oriented, no focal neurologic deficit appreciated Results & Data Results & Data Vital Signs (Past 12 Hours) Vital Signs Temp Pulse Pulse Resp BP BP Pulse Ox 02/16/23 00:30 36.9 C 85 18 149/83 H 94 02/15/23 22:21 36.7 C 71 18 145/90 H 100 O2 Del Method 02/16/23 00:30 Room Air 02/15/23 22:21 Room Air Resident Activity Tracking Resident Involvement: Resident Care Provided Care Provided: Adult Hospital Medicine
[2023-02-16 07:49] LABS: BUN Creatinine Ratio 9.1 (10-20); Calcium 10.6 mg/dl (8.6-10.3); Creatinine Clr Calc Pharmacy 39.3 ml/min; Est GFR (African American) 29.5 ml/min; Est GFR (Non-African American) 25.5 ml/min; Potassium 4.1 mmol/L (3.5-5.1)
--- NOTE | 2023-02-16 09:31 | Urology Progress Note ---
Date of Service February 16, 2023 Assessment & Plan (1) Bilateral ureteral calculi: (2) CLAUS (acute kidney injury): Plan We reviewed her bilateral ureteral stones. She is passing some urine so she is not fully obstructed, however in the setting of bilateral stones, I would recommend cystoscopy, bilateral retrograde pyelogram and bilateral ureteral stent placement. We discussed risks and benefits of the surgery including risks of bleeding, infection, injury to urinary tract, inability to place stent, need for additional procedures. She expressed understanding and willingness to proceed with surgery Admission and Anticipated Discharge Date Admission Date: February 15, 2023 Subjective Feeling okay this morning Has been able to urinate some Not having much pain anymore Has not passed any stones Creatinine improved from 2.52 down to 2.20 Urinalysis with 2+ leukocyte esterase, negative nitrites, 3+ blood Review of Systems Review of Systems: 12 point review of systems negative except for otherwise indicated. Physical Exam Physical Exam: Well-appearing, NAD Results & Data Vital Signs (Past 12 Hours) Vital Signs Temp Pulse Pulse Resp BP BP Pulse Ox 02/16/23 08:02 37 C 67 16 118/75 94 02/16/23 00:30 36.9 C 85 18 149/83 H 94 02/15/23 22:21 36.7 C 71 18 145/90 H 100 O2 Del Method 02/16/23 08:02 Room Air 02/16/23 00:30 Room Air 02/15/23 22:21 Room Air PG Care Time/CCT Total # of Minutes Spent Total Time Spent with Patient: Total time spent is greater than 50% in coordination of care (as documented) at patient's floor/unit and/or counseling patient: Coding Level of Care Code 77426 SUB INP/OBS CARE 1/25MIN Diagnoses Bilateral ureteral calculi N20.1 CLAUS (acute kidney injury) N17.9
[2023-02-16] MEDS ORDERED: LIDOCAINE 2% 2 ML VIAL/AMP(20MG/ML) INFIL ONE (10:27)
[2023-02-16] MEDS ORDERED: PROPOFOL IV EMULSION 10 MG/ML 20 ML VIAL IV ONE ×2 (10:27→11:02)
[2023-02-16] MEDS ORDERED: DEXAMETHASONE SOD INJ 4 MG/ML VIAL ONE ×3 (10:27→11:02)
[2023-02-16] MEDS ORDERED: ONDANSETRON INJ 2 MG/ML 2 ML VIAL ONE (10:27)
[2023-02-16] MEDS ORDERED: fentaNYL citrate PF 100 MCG/2 ML VIAL ONE (10:27)
[2023-02-16] MEDS ORDERED: MIDAZOLAM HCL 1 MG/ML 2ML VIAL ONE (10:27)
[2023-02-16] MEDS ORDERED: ePHEDrine sulfate 50 MG/ML AMP IV PRN (10:49)
[2023-02-16] MEDS ORDERED: fentaNYL citrate PF 100 MCG/2 ML VIAL IV PRN (10:49)
[2023-02-16] MEDS ORDERED: ATROPINE SULFATE 0.1 MG/ML 10ML SYR IV PRN (10:49)
--- NOTE | 2023-02-16 10:49 | Anesthesiology Consultation ---
Date of Service February 16, 2023 Assessment & Plan Chart Review Chart Review: Acceptable Risk for Surgery and Patient NOT seen in Pre Admission Testing Consults Requested none ASA ASA1 Proposed Anesthesia Anesthesia Type: MAC Risk / Benefits Reviewed With: PT / POA / Parent / Guardian, Accepts Plan and Informed Consent Obtained History Surgery Operation Date: 02/16/23 12:00 Proposed Procedures p Cystoscopy Retrograde, Bilateral Ureteral Stent Placement - Nathan Simon MD Height/Weight Height: 5 ft 11 in Weight: 94.8 kg Allergies Allergy/AdvReac Type Severity Reaction Status Date / Time amoxicillin Allergy SHORT OF Unverified 02/15/23 02:30 BREATH Medications Home Medications Medication Instructions Recorded Confirmed Last Taken acetaminophen 500 mg tablet 500 mg PO Q6H PRN Pain 02/15/23 02/15/23 Unknown (Tylenol Extra Strength) aspirin 325 mg tablet 325 - 650 mg PO DAILY PRN Pain 02/15/23 02/15/23 Unknown ondansetron 4 mg disintegrating 4 - 8 mg PO Q8H PRN nausea and 02/15/23 Unknown tablet vomiting #14 tabs oxycodone 5 mg tablet 5 mg PO Q6H PRN pain #12 tabs 02/15/23 Unknown oxycodone 5 mg tablet 5 mg PO Q6H PRN pain #12 tabs 02/15/23 Unknown tamsulosin 0.4 mg capsule (Flomax) 0.4 mg PO DAILY #5 caps 02/15/23 Unknown Active Medications Generic Name Dose Route Start Last Admin Trade Name Freq PRN Reason Stop Dose Admin Sodium Chloride 1,000 mls @ 125 mls/hr 02/16/23 00:27 02/16/23 00:49 Nss IV 02/16/23 16:26 125 mls/hr .Q8H SHERLYN Administration NPO Date Last Intake of Fluids: 02/15/23 Time Last Intake of Fluids: 23:00 Last Intake of Fluids Comment: water Date Last Intake of Solids: 02/15/23 Time Last Intake of Solids: 19:00 Past Medical History Medical History No chronic diseases present Past Surgical History Surgical History No significant past surgical history Past Anesthesia History No Hx of Anesthesia Complications and No Family Hx of Anesthesia Complications Social History Smoking Status: Never smoker Do You Dip or Chew Tobacco: No Hx Alcohol Use: Yes alcohol intake frequency: holidays/special occasions only Hx Substance Use: No Review of Systems ROS Unobtainable: All systems reviewed & are unremarkable except as noted in HPI & below Physical Exam Vital Signs Last Vital Signs Temp 37 C 02/16/23 08:02 Pulse 67 02/16/23 08:02 Resp 16 02/16/23 08:02 BP 118/75 02/16/23 08:02 Pulse Ox 94 02/16/23 08:02 O2 Del Method Room Air 02/16/23 08:02 Constitutional no acute distress ENMT Mouth: no TMJ abnormality Thyromental Distance: > or= 3.5 Finger Breadths Mallampati Class: II Neck normal visual inspection and trachea midline; neck extension not limited Respiratory normal respiratory effort Auscultation: lungs clear to auscultation bilaterally Cardiovascular Rate/Rhythm: regular rate and regular rhythm Heart Sounds: no murmur Musculoskeletal Spine: normal cervical ROM Extremities: full ROM of extremities Neurologic moves all extremities Psychiatric Orientation: alert and oriented x 3 Testing Laboratory Results 02/16/23 07:06 02/16/23 07:06 Urine Color Yellow 02/16/23 Unknown Urine Appearance Cloudy (Clear) A 02/16/23 Unknown Urine pH 6.0 (4.5-7.5) 02/16/23 Unknown Ur Specific [place] 1.010 (1.000-1.030) 02/16/23 Unknown Urine Protein Trace (Negative) H 02/16/23 Unknown Urine Glucose (UA) Negative (Negative) 02/16/23 Unknown Urine Ketones Negative (Negative) 02/16/23 Unknown Urine Nitrite Negative (Negative) 02/16/23 Unknown Ur Leukocyte Esterase 2+ (Negative) H 02/16/23 Unknown Urine WBC (Auto) 10-30 /hpf (0-5) H 02/16/23 Unknown Urine RBC (Auto) >30 /hpf (0-4) H 02/16/23 Unknown U Hyaline Cast (Auto) 10-30 /lpf (0-5) H 02/16/23 Unknown U Epithel Cells (Auto) 20-30 /lpf (0-5) H 02/16/23 Unknown Urine Bacteria (Auto) Negative (Negative) 02/16/23 Unknown
[2023-02-16] MEDS ORDERED: DIATRIZOATE MEGLUMINE 30% 100ML VIAL INSTIL ONE (11:03)
--- NOTE | 2023-02-16 11:15 | Operative Report ---
PG Post Operative Report Pre & Post Diagnosis Operation Date: 02/16/23 12:00 Pre-Op Diagnosis: BILATERAL ureteral stones Post-Op Diagnosis: BILATERAL ureteral stones I identified the patient and participated in the time-out.: Yes Procedure Operation Date: 02/16/23 12:00 Actual Procedures p Cystoscopy Retrograde Pyelogram, Bilateral Ureteral Stent Placement(Bilateral) - Nathan Simon MD Surgeon Nathan Simon MD Powerhouse Tender None Estimated Blood Loss 0 Findings Consistent with Post-Op Diagnosis Specimens None Drains 6 Montenegrin by 24 cm double-J ureteral stent in each ureter Anesthesia Type MAC Complications none Disposition Accompanied Patient To Recovery: Yes Disposition: Recovery Room Indications This is a 47-year-old female who recently presented to the hospital with flank pain and was found to have bilateral ureteral stones. She is being brought to the OR for bilateral ureteral stent placement. Description of Procedure The patient was identified in the holding area and informed consent was confirmed. She was taken to the operating room where anesthesia was initiated. She was placed in the dorsal lithotomy position with all pressure points appropriately padded. She was prepped and draped in the usual sterile fashion and a preoperative timeout was performed. A well-lubricated cystoscope was inserted per urethra and panendoscopy was performed. The urethra was normal in appearance. The bladder was of normal size with ureteral orifices in orthotopic position. No tumors or stones were appreciated. The right ureteral orifice was identified and cannulated with a 5 Montenegrin open- ended catheter. A retrograde pyelogram was performed demonstrating a narrowed area in the distal ureter with hydronephrosis proximal to this. There was hydronephrosis of the right kidney. A 0.038" ZIPwire was advanced to the level of the kidney under fluoroscopic guidance. Over the wire, a 6 Montenegrin x 24 centimeter double-J ureteral stent was advanced. When the wire was removed, the proximal curl was visualized in the kidney with x-ray, and the distal curl visualized in the bladder with the cystoscope. There was some turbid urine which drained through the stent. In a similar fashion, the left ureteral orifice was cannulated with a 5 Montenegrin open-ended catheter. Left retrograde pyelogram indicated some hydronephrosis and hydroureter as well. The zip wire was advanced to the left kidney under fluoroscopic guidance, then over the wire a 6 Montenegrin by 24 cm double-J ureteral stent was advanced. The proximal curl was positioned in the renal pelvis. The distal curl was visible in the bladder with the cystoscope. At this point the bladder was drained and all instrumentation was removed. The patient was then awakened from anesthesia and was brought to the PACU in stable condition. I attest to the content of the Intraoperative Record and any orders documented therein. Any exceptions are noted below.
--- NOTE | 2023-02-16 11:34 | Anesthesiology Progress Note ---
Date of Service February 16, 2023 Anesthesia Post Procedure Vital Signs Vital Signs: Temp Pulse Pulse Pulse Resp BP BP 02/16/23 11:30 36.7 C 75 22 117/79 02/16/23 11:20 64 20 107/60 02/16/23 11:12 36.5 C 72 12 84/62 L 02/16/23 08:02 37 C 67 16 118/75 02/16/23 00:30 36.9 C 85 18 149/83 H 02/15/23 22:21 36.7 C 71 18 145/90 H Pulse Ox O2 Del Method O2 Flow Rate 02/16/23 11:30 95 Room Air 02/16/23 11:20 100 Oxymask 2 02/16/23 11:12 99 Oxymask 4 02/16/23 08:02 94 Room Air 02/16/23 00:30 94 Room Air 02/15/23 22:21 100 Room Air Pain Intensity Left Flank: Pain Intensity: 2 Transfer of Care Handoff Completed per policy Notes Mental Status: alert / awake / arousable Patient Amnestic to Procedure: Yes Nausea / Vomiting: adequately controlled Pain: adequately controlled Airway Patency, RR, SpO2: stable & adequate BP & HR: stable & adequate Hydration State: stable & adequate Anesthetic Complications: no major complications apparent and Pt Satisfied with anesthetic care
[2023-02-16] MEDS: CIPROFLOXACIN / D5W 400 MG/200 ML BAG IV SCH ×2 (12:08→23:29)
[2023-02-16 16:07] LABS: BUN Creatinine Ratio 9.5 (10-20); Calcium 11.2 mg/dl (8.6-10.3); Creatinine Clr Calc Pharmacy 48.3 ml/min; Est GFR (African American) 37.9 ml/min; Est GFR (Non-African American) 32.7 ml/min; Potassium 3.6 mmol/L (3.5-5.1)
--- NOTE | 2023-02-16 19:38 | Fluoroscopy Report ---
FL retrograde includes kub CLINICAL HISTORY: B/L STENT PLACEMENT TECHNIQUE: 4 views were obtained with the C-arm in the OR with the above procedure. Total fluoroscopy time was 15.5 seconds. Radiation dose was 3.22 mGy. Comparison: Comparison is made to CT abdomen pelvis 02/15/2023 FINDINGS/IMPRESSION: Intraoperative images were obtained of retrograde pyelogram with bilateral stent placement. The right stent is in satisfactory appearance, the final position of the left stent is no t well seen. Please correlate with intraoperative fluoroscopy and operative report. ACT 112: Negative or not required by law. Electronically signed by: Raul Mary M.D. 02/16/2023 7:37 PM
[2023-02-16] MEDS ORDERED: TAMSULOSIN HCL 0.4 MG CAP PO SCH (21:00)
--- NOTE | 2023-02-17 07:45 | Discharge Summary ---
Date of Service February 17, 2023 Admission HPI Per Admitting Provider Steph Thomas is a 47yo female presenting with left sided flank pain. Patient presents with left sided flank pain that began acutely around 16:30. Pain severe, she took Advil and Oxycodone for pain relief. She also reports nausea with 3 episodes of non-bloody/non-bilious vomiting. She has noted some hematuria as well. She feels that she needs to strain to start her urinary screen. She was seen in the ER last night and found to have right sided renal stone. Her first renal stone was in October 2022. In the ER she is afebrile, HD stable ER Coruse: Ciprofloxacin Reglan Zofran NSS Admission Exam Per Admitting Provider General: patient resting comfortably, NAD, non-toxic in appearance, AA&O x 4 Skin: warm, dry, intact, no rashes or lesions HEENT: NC/AT, PERRL, EOMI, anicteric sclera, conjunctiva without injection, external ear normal to inspection and nontender, nares patent, moist mucus membranes, dentition intact, no oropharyngeal lesions, neck supple, trachea midline, no LAD, no thyromegaly, no JVD Heart: +S1/S2, regular, no m/r/g Lungs: equal air entry bilaterally, no rales/rhonchi/wheezes Abd: +BS, soft, NT/ND, no masses/organomegaly/ascites Ext: warm, 2+ pulses in UE/LE bilaterally, no clubbing/cyanosis or edema Neuro: nonfocal, patient AA&O x 4, speech intact, no facial droop, moving all extremities on command with equal strength 5/5 Principal Diagnosis Bilateral ureteral calculi Discharge Exam Constitutional: well-appearing, no acute distress HEENT: NCAT, no conjunctival injection CV: regular rhythm, no murmur appreciated, extremities well-perfused, no LE edema Resp: CTABL, no wheezes/rales/rhonchi appreciated, no increased work of breathing GI: soft, nondistended, nontender, BS normoactive MSK: no gross deformities appreciated Skin: warm, dry, no rash appreciated Neuro: alert, oriented, no focal neurologic deficit appreciated Discharge Data Allergies Allergy/AdvReac Type Severity Reaction Status Date / Time amoxicillin Allergy SHORT OF Unverified 02/15/23 02:30 BREATH Consultations 02/15/23 23:23 Consult Urology Stat 02/15/23 23:30 ED Decision to Admit Stat 02/16/23 00:27 Consult Urology Routine Procedures Performed Operation Date: 02/16/23 12:00 Actual Procedures p Cystoscopy Retrograde Pyelogram, Bilateral Ureteral Stent Placement(Bilateral) - Nathan Simon MD Ordered Studies 02/15/23 22:39 CT Abd and Pelvis [CT abd pelvis wo con] Stat 02/16/23 08:30 FL retrograde includes kub Routine Abdomen/Pelvis CT 02/15/23 22:39 CT SCAN OF THE ABDOMEN AND PELVIS WITHOUT IV CONTRAST CLINICAL HISTORY: Left flank pain COMPARISON STUDY: Abdominal CT performed earlier the same day 02/15/2023. TECHNIQUE: CT scan of the abdomen and pelvis is performed from the lung bases to the proximal femora. Images are reviewed in the axial, sagittal, and coronal planes. IV contrast was not administered for this examination. A dose lowering technique was utilized adhering to the principles of ALARA. CT DOSE: 1336.92 mGy.cm FINDINGS: Lung bases: The heart is normal in size and without pericardial effusion. There is trace right pleural effusion and dependent atelectasis. Liver: The unenhanced liver is normal in size, contour, and attenuation. There is no intrahepatic biliary ductal dilatation. Gallbladder: Unremarkable. Spleen: Normal in size and attenuation. Pancreas: Unremarkable. Adrenal glands: Unremarkable. Kidneys: The unenhanced kidneys are normal in size. There is a 5 mm obstructing calculus at the left vesicoureteral junction seen on image #356. This causes moderate left hydroureteronephrosis. There is a 7 mm obstructing calculus in the distal right ureter just below the pelvic inlet seen on image #312. This causes moderate to severe hydronephrosis on the right. No additional calculi are identified in either kidney. There is mild left-sided perinephric stranding. There is no evidence of contour deforming renal mass lesion. Abdominal vasculature: The abdominal aorta is normal in course and caliber. Bowel: There is no bowel obstruction. The appendix is well-visualized and normal. Peritoneum: There is no intraperitoneal free air or abdominal ascites. There is a fat-containing umbilical hernia. Lymphadenopathy: None. Pelvic viscera: The bladder is decompressed and not well evaluated. The uterus and adnexa are normal as visualized. Trace free fluid is seen in the cul-de-sac. Skeletal structures: No lytic or blastic lesions are seen. IMPRESSION: 1. Bilateral obstructing ureteral stones and bilateral hydronephrosis as above. This is similar to today's earlier examination. 2. No additional renal calculi are identified in either kidney. 3. Trace free fluid pelvis is nonspecific and likely physiologic. ACT 112: Negative or not required by law. Electronically signed by: Дмитрий Barber M.D. 02/15/2023 11:13 PM Retrograde Pyelogram 02/16/23 08:30 FL retrograde includes kub CLINICAL HISTORY: B/L STENT PLACEMENT TECHNIQUE: 4 views were obtained with the C-arm in the OR with the above procedure. Total fluoroscopy time was 15.5 seconds. Radiation dose was 3.22 mGy. Comparison: Comparison is made to CT abdomen pelvis 02/15/2023 FINDINGS/IMPRESSION: Intraoperative images were obtained of retrograde pyelogram with bilateral stent placement. The right stent is in satisfactory appearance, the final position of the left stent is not well seen. Please correlate with intraoperative fluoroscopy and operative report. ACT 112: Negative or not required by law. Electronically signed by: Raul Mary M.D. 02/16/2023 7:37 PM Hospital Course (1) Bilateral hydronephrosis: (2) Hypercalcemia: (3) Bilateral ureteral calculi: Plan 47yo female presenting with bilateral flank pain, nausea, vomiting and hematuria. Found to have bilateral nephrolithiasis - 7mm stone in the right distal ureter and 5mm stone in the left vesicoureteral junction. #Bilateral hydronephrosis #Bilateral ureteral calculi #CLAUS -Elevated WBC count=13. Elevated Cr at 2.52 at time of admission, Given IV fluids. Creatinine of 1.25 at time of discharge. We will check BMP in 3 days. -Ciprofloxacin 400mg IV BID; transition to p.o. Cipro 500 mg twice daily at time of discharge. We will treat with a 5-day course of antibiotics which will end on 02/21. -Urology consultation appreciated -OR on 02/16 for cystoscopy with ureteral stent placement. -We will need follow-up with urology in 1 to 2 weeks for stone removal and stent removal. -VSS stable at time of discharge. #Hypercalcemia -Elevated Ca at 11.5. Possible etiology of patient's new renal stones -TSH normal. -Labs showed a elevated PTH, low vitamin D, and a elevated ionized calcium. -Should have follow-up with PCP regarding further work-up of possible primary hyperparathyroidism. -Started on Cinacalcet 30mg BID at time of discharge. Will discuss with PCP at follow-up of chronic pain further treatment with this medication. Total Time Total Time Spent Total Time Spent (In Minutes): <30 Discharge Plan Discharge Items Patient Disposition: Home - Self-Care Reason For Visit: BILATERAL NEPHROLITHISIS Discharge Diagnosis: Bilateral ureteral calculi Activity: Per Instructions section Non-emergency contact: Primary Care Provider and Urologist Call non-emergency contact if: you have any medication questions, your pain is worsening, your pain is concerning for you and your temperature is above 101.5 Follow-up/Referrals: Nathan Simon MD [Physician] - (In 1 to 2 weeks. Office will reach out to schedule) Amaris Mariscal DO [Primary Care Provider] - 02/24/23 7:45 am Diet: Regular Ambulatory Orders: Basic Metabolic Panel (Routine) Timeframe: 3 Days Location: Determined by Patient Ordered By: Дмитрий Cabrera Attending Provider Instructions: You were admitted to the hospital for Bilateral ureteral calculi. You were treated with ureteral stent placement. You will need to follow-up with urology about removing stents as well as stone removal. A discharge summary will be sent to your primary care physician to ensure continuity of care. Please bring this discharge summary with you to your next office appointment so that your provider can review it at that time. Follow-up appointments: * Make a follow-up appointment with your PCP within the next week. It is very important that you follow up with them shortly after discharge from the hospital. * Make a follow-up appointment with urology within 1 to 2 weeks. They will give you a call as stated below. If you do not hear from them please call their office at [phone]. * We also request you to have a BMP in 3 days. An order is placed for you. * Keep all your follow-up appointments as already scheduled. If you cannot make an appointment, notify your provider. Medications: Your medication list has been reviewed and reconciled upon discharge to ensure accuracy and continuity of care. An updated list of all your medications is included with your hospital discharge paperwork. Please review this list closely, and make note of any changes. * We sent a new medication called Cinacalcet to your pharmacy. Take Cinacalcet 30 mg twice a day. Should follow-up with PCP about ongoing care. * We sent a new medication called ciprofloxacin to your pharmacy. Take ciprofloxacin 500 mg twice a day for the next 4 days. * If you have any issues filling these prescriptions, please call [phone] and ask to leave a message for Dr. Mujica. * Take your medications as instructed; do not skip a dose of your medicines. Make sure all of your doctors know every medicine you are taking (including [id number] medicines, vitamins, and supplements). Call your primary care provider before taking any new medicines (including over- the-counter medicines, vitamins, and supplements), because some of these may interact with your current medications, or may make your symptoms worse. Tell your primary care provider if you cannot afford your medications. CONTACT YOUR PRIMARY CARE PROVIDER if you experience any of the following: * Worsening of symptoms * Fever, chills, or fatigue * Difficulty following your treatment plan, or difficulty taking medications CALL [phone] OR GO TO THE EMERGENCY DEPARTMENT if you experience any of the following: * Sudden, severe abdominal pain or nausea/vomiting * Severe chest pain, or chest pain that radiates (moves) to your jaw or arm * Sudden, severe shortness of breath or difficulty breathing Thank you for allowing us to participate in your care. Addtl Seo Analyst Provider Instructions: The surgery you had was bilateral ureteral stent placement. If you are having discomfort from your stent, it is ok to take tylenol alternating with ibuprofen. You can also take AZO, which can be purchased [id number] at the [employer]. Be aware this turns your urine a bright orange color. If you are prescribed a stronger medication you can take this according to instructions on the label. The stent will need to be removed. If you still have a kidney stone in place, we will make sure this is treated prior to stent removal. As long as the stent is in place, you may see some blood in the urine. You may have pain in your side when you urinate. The urology office will call you within a couple days of discharge to arrange an outpatient office visit. If you have not heard from us after 2 days, you can call the office at [phone]: Pending Studies at Discharge: No Stand-Alone Forms: My [facility], Smoking Cessation Medications and DC Order Prescriptions: New ciprofloxacin HCl 500 mg tablet 500 mg PO BID 4 Days Qty: 8 0RF cinacalcet [Sensipar] 30 mg tablet 30 mg PO BID 30 Days Qty: 60 0RF Continued aspirin 325 mg Tablet 325 - 650 mg PO DAILY PRN (Reason: Pain) acetaminophen [Tylenol Extra Strength] 500 mg Tablet 500 mg PO Q6H PRN (Reason: Pain) oxycodone 5 mg tablet 5 mg PO Q6H PRN (Reason: pain) Qty: 12 0RF tamsulosin [Flomax] 0.4 mg capsule 0.4 mg PO DAILY Qty: 5 0RF oxycodone 5 mg tablet 5 mg PO Q6H PRN (Reason: pain) Qty: 12 0RF ondansetron 4 mg tablet,disintegrating 4 - 8 mg PO Q8H PRN (Reason: nausea and vomiting) Qty: 14 0RF Discharge Orders: Discharge Order (Routine); Ordered 02/17/23 Ordered By: Дмитрий Chung/Other Patient Handouts: Having a Ureteral Stent, Preventing Kidney Stones Admission Data Admit Date/Time: 02/15/23 23:41 Attending Provider: Taurus Garcias Admit Provider: Debra No Primary Care Provider: Amaris Mariscal Other Providers: Nathan Simon ; Debra No Other Interventions: Discharge Summary Assessment (RN) Last Done: 02/17/23 13:51 Supervising Physician Co-Signing Physician Notes I personally examined the patient and verified all ace points of history and exam, discussed case, and agree with decision making with Dr Mujica feeling better and feeling up to going home. Discussed hypercalcemia and probable primary hyperparathyroidismanswered all questions the best my ability. Vitals noted, in general she is awake and alert pleasant no distress. HEENT normocephalic atraumatic mucous membranes moist. Breathing unlabored no accessory muscle use good effort. Skin shows no rashes no pallor or icterus. Ureterolithiasisstatus post cystoscopy and stenting. Stable for home. Hypercalcemiaprobably primary hyperparathyroidism. Outpatient management. Discussed probabilities and follow-up. Patient expressed understanding. Resident Activity Tracking Resident Involvement: Resident Care Provided Care Provided: Adult Hospital Medicine
[2023-02-17 07:47] LABS: Hematocrit (blood only) 32.1 % (37.0-47.0); Hemoglobin 10.9 g/dl (12.0-16.0); Mean Corpuscular Hemoglobin 29.7 pg (25.0-34.0); Mean Corpuscular Volume 87.5 fL (80.0-100.0); Mean Platelet Volume 9.5 fL (9.4-12.4); Platelet Count 220 K/uL (130-400); RDW Coefficient of Variation 12.2 % (11.5-14.5); RDW Standard Deviation 39.4 fL (36.4-46.3); Red Blood Count 3.67 M/uL (4.20-5.40); White Blood Count 8.96 K/ul (4.8-10.8)
[2023-02-17 08:09] LABS: Albumin Globulin Ratio 1.5 (0.9-2); Albumin Level 3.5 gm/dl (3.4-5.0); BUN Creatinine Ratio 13.6 (10-20); Bilirubin,Total 0.3 mg/dl (0.2-1.0); Calcium 10.9 mg/dl (8.6-10.3); Creatinine Clr Calc Pharmacy 69.1 ml/min; Est GFR (African American) 58.5 ml/min; Est GFR (Non-African American) 50.5 ml/min; Globulin 2.3 gm/dl (2.5-4.0); Magnesium 1.9 mg/dl (1.7-2.4); Phosphorus 3.2 mg/dl (2.5-4.9); Potassium 3.4 mmol/L (3.5-5.1); Total Protein 5.8 gm/dl (6.0-8.3)
[2023-02-17] MEDS ORDERED: POTASSIUM CHLORIDE CRTAB 20 MEQ TABCR PO STA (08:49)
--- NOTE | 2023-02-17 09:21 | Urology Progress Note ---
Date of Service February 17, 2023 Assessment & Plan (1) Bilateral ureteral calculi: (2) CLAUS (acute kidney injury): Plan POD #1 s/p Cystoscopy, Retrograde Pyelogram, Bilateral Ureteral Stent Placement with Dr. Simon. Tolerating the ureteral stents with minimal bother. Afebrile, hemodynamically stable. Labs reviewed-WBC 8.96, hemoglobin 10.9, creatinine 1.25. Urine culture 02/15 with more than 3 types of organisms, all high counts. Repeat urine culture pending. On Ciprofloxacin. Okay for discharge from perspective when medically stable. Recommend d/c with short course of antibiotics, tamsulosin, prn pain medication for stent management. Will arrange outpatient follow-up with our service. Urology will sign off. Please contact us with any further questions, concerns, or changes in patient's status. Admission and Anticipated Discharge Date Admission Date: February 15, 2023 Subjective Patient examined at bedside this AM. Awake, resting in bed on arrival. No acute distress. Overall feeling much better. Tolerating the ureteral stents with minimal bother. Denies fevers, chills, nausea, vomiting at present. Voiding without issue. Some hematuria and dysuria as expected. Review of Systems Constitutional: as per Subjective / HPI Gastrointestinal: as per Subjective / HPI Genitourinary: as per Subjective / HPI Physical Exam Constitutional: no acute distress Respiratory: no respiratory distress and no labored breathing Skin: No visible rashes or lesions to exposed skin areas Neurologic: awake Psychiatric: A+Ox3, euthymic affect Results & Data Vital Signs (Past 12 Hours) Vital Signs Temp Pulse Resp BP Pulse Ox O2 Del Method 02/17/23 07:17 36.6 C 68 16 124/78 95 Room Air 02/17/23 02:33 36.8 C 71 16 104/66 97 Room Air PG Care Time/CCT Total # of Minutes Spent Total Time Spent with Patient: Total time spent is greater than 50% in coordination of care (as documented) at patient's floor/unit and/or counseling patient: Coding Level of Care Code 07630 SUB INP/OBS CARE 2/35MIN Diagnoses Bilateral ureteral calculi N20.1 CLAUS (acute kidney injury) N17.9
[2023-02-17] MEDS: CIPROFLOXACIN / D5W 400 MG/200 ML BAG IV SCH (11:43)
--- NOTE | 2023-02-17 18:39 | Billing Data ---
Date of Service February 17, 2023 Coding Level of Care Code 39355 IN/OBS DISCH 30 MIN/LESS
== END 2023-02-17 14:36 | disposition home or self-care (01) | DRG 661 ==
LOC: ED 22:15 → 3W 23:41 → SUATTDRO 23:41 → 3W 02-16 01:01

== ENCOUNTER 2023-02-19 | Observation (INO) ==
[2023-02-19 01:13] LABS: Basophils # (auto) 0.06 K/uL (0.00-0.20); Basophils % (auto) 0.7 %; Eosinophils # (auto) 0.22 K/uL (0.00-0.50); Eosinophils % (auto) 2.7 %; Hematocrit (blood only) 39.5 % (37.0-47.0); Hemoglobin 13.2 g/dl (12.0-16.0); Immature Granulocytes # (auto) 0.03 K/uL (0.01-0.20); Immature Granulocytes % (auto) 0.4 %; Lymphocytes # (auto) 2.54 K/uL (1.20-3.40); Lymphocytes % (auto) 31.6 %; Mean Corpuscular Hemoglobin 29.5 pg (25.0-34.0); Mean Corpuscular Hgb Conc 33.4 g/dL (32.0-36.0); Mean Corpuscular Volume 88.2 fL (80.0-100.0); Mean Platelet Volume 9.4 fL (9.4-12.4); Monocytes # (auto) 0.81 K/uL (0.11-0.59); Monocytes % (auto) 10.1 %; Neutrophils # (auto) 4.39 K/uL (1.40-6.50); Neutrophils % (auto) 54.5 %; Platelet Count 293 K/uL (130-400); RDW Coefficient of Variation 12.2 % (11.5-14.5); RDW Standard Deviation 38.9 fL (36.4-46.3); Red Blood Count 4.48 M/uL (4.20-5.40); White Blood Count 8.05 K/ul (4.8-10.8)
[2023-02-19 01:30] LABS: Albumin Globulin Ratio 1.6 (0.9-2); Albumin Level 4.4 gm/dl (3.4-5.0); BUN Creatinine Ratio 15.9 (10-20); Bilirubin,Total 0.3 mg/dl (0.2-1.0); Calcium 12.1 mg/dl (8.6-10.3); Creatinine Clr Calc Pharmacy 80.2 ml/min; Est GFR (African American) 70.6 ml/min; Est GFR (Non-African American) 60.9 ml/min; Globulin 2.8 gm/dl (2.5-4.0); Potassium 3.4 mmol/L (3.5-5.1); Total Protein 7.2 gm/dl (6.0-8.3)
--- NOTE | 2023-02-19 02:07 | Urology Consultation ---
Date of Consultation February 19, 2023 Assessment & Plan (1) Bilateral ureteral calculi: I discussed case with my attending physician Dr. Marcelino Stewart we decided to proceed as follows: As the patient's stent is protruding it will need to be removed. With a female nurse supervisor intermediates present I was able to visualize the patient's exposed stent and removed it in its entirety without difficulty. Patient tolerated this well and she did not experience any significant pain or discomfort following stent removal (of note it was unclear which side ureteral stent was removed) Following stent removal we will check a KUB which was show position of the patient's remaining stent and allow us to further assess the location of patient's known kidney stone We will check a urinalysis The patient will remain on ciprofloxacin Addendum: Following removal of the patient's ureteral stent KUB was checked. This revealed that the stent removal was the right-hand side stent. KUB did reveal that it appears as though the left ureteral stent was also out of position however it was not protruding out of the patient's urethra. The patient appeared to have a large stool burden on this study and I could therefore not ascertain the presence or location of her bilateral kidney stones. As the patient has a history of bilateral obstructing kidney stones that have not yet been treated in a definitive fashion and the fact that she had acute kidney injury during her previous hospitalization I am hesitant to send the patient home due to concern the patient may develop renal colic and also acute kidney injury. I did discuss this with the patient and she is agreeable to stay in the hospital at this time. I discussed with the [facility] physician group hospitalist service who notes that they will admit the patient to the hospital. As the patient is noted to have an elevated calcium level we will hydrate her with intravenous fluids which I have ordered. We are currently awaiting a urinalysis to evaluate for the possibility of urinary tract infection. As noted the patient was taking Cipro at time of discharge and she did take her evening dose on 02/18/2023. We will continue her on his Cipro resuming her dose the morning of 02/19/2023 The patient will be evaluated by our dayshift urology team in the morning to determine if patient requires any further intervention regarding her kidney stones or replacement/repositioning of her ureteral stents. Supervising Physician Co-Signing Physician Notes Seen and examined this morning Reviewed her KUB Her left stent is certainly low and her right stent is now outI did not definitively see either stone on KUB Subjectively she is feeling very well I think it is reasonable to consider discharge home if she remains pain-free through the morningwe can then treat her stone as an outpatient in the next 24 to 48 hours If she experiences fevers or severe pain, she should remain in the hospital and we can attempt to facilitate this as an inpatient she is comfortable with the plan History of Present Illness Reason for Consultation: History of bilateral nephrolithiasis Protruding ureteral stent History of Present Illness This is a 47-year-old female who is known to [facility] physician group urology. The patient was most recently hospitalized from 02/15/2023 through 02/17/2023. Patient was admitted secondary to bilateral obstructing renal calculi. It should be noted that the patient also suffered acute kidney injury secondary to these kidney stones. The patient's maximum creatinine was noted to be 2.52 which was performed on 02/15/2023. She was noted to have a left-sided kidney stone measuring 5 mm and a right-sided kidney stone measuring 7 mm. On 02/16/2023 the patient underwent a cystoscopy by Dr. Blaen Simon. During the cystoscopy the patient had bilateral 24 cm, 6 Canadian double-J ureteral stents placed. Serial labs were followed during her hospitalization and her creatinine did improve to 1.25. Of note, the patient did have urine culture sent on 02/15/2023 and again on 02/16/2023oth culture results showed probable mixed skin maris. The patient was discharged home with oral ciprofloxacin. Following discharge home the patient noted she was doing well having only minimal discomfort from her ureteral stents. She denies any fevers, shakes, or chills since being home. She denies any abdominal pain or nausea or vomiting. She has not been having any difficulty with urinating with only some minor burning. Earlier this evening the patient noted that she had sudden onset of urinary incontinence. Upon inspection of her urethra she noted that her ureteral stent was protruding from her urethra and she therefore presented to the emergency department. She does not offer any other complaints at this time. Since arrival to the hospital the patient has had labs which I independent reviewed. Her white blood cell count was normal. Her hemoglobin, hematocrit, platelet count were also noted to be normal. Chemistry profile showed her sodium was 137 with a potassium of 3.4. BUN and creatinine were 17 and 1.0. The patient was noted to have an elevated calcium level of 12.1 there is no elevation of her LFTs. Of note, during the patient's previous hospitalization she was noted to have an elevated intact parathyroid hormone level of 210.1 and a decreased vitamin D level at 15.3.(During her previous hospitalization she was started on send Cinacalcet 30 mg bid and plans were to be put in place for patient to follow-up with her primary care provider regarding further evaluation and treatment of her hypercalcemia and abnormal parathyroid levels) At the time of my interview she was resting comfortably in bed and she was in no distress. Allergies Allergy/AdvReac Type Severity Reaction Status Date / Time amoxicillin Allergy SHORT OF Unverified 02/15/23 02:30 BREATH Home Medications Medication Instructions Recorded Confirmed Type acetaminophen 500 mg tablet 500 mg PO Q6H PRN Pain 02/15/23 02/19/23 History (Tylenol Extra Strength) aspirin 325 mg tablet 325 - 650 mg PO DAILY PRN Pain 02/15/23 02/19/23 History ondansetron 4 mg disintegrating 4 - 8 mg PO Q8H PRN nausea and 02/15/23 02/19/23 Rx tablet vomiting #14 tabs oxycodone 5 mg tablet 5 mg PO Q6H PRN pain #12 tabs 02/15/23 02/19/23 Rx tamsulosin 0.4 mg capsule (Flomax) 0.4 mg PO DAILY #5 caps 02/15/23 02/19/23 Rx cinacalcet 30 mg tablet (Sensipar) 30 mg PO BID 30 days #60 tabs 02/17/23 02/19/23 Rx ciprofloxacin HCl 500 mg tablet 500 mg PO BID 4 days #8 tabs 02/17/23 02/19/23 Rx Patient History Medical History No chronic diseases present Surgical History No significant past surgical history Social History Smoking Status: Never smoker Second Hand Exposure: No; Do You Dip or Chew Tobacco: No; Hx Alcohol Use: Yes Hx Substance Use: No Preferred Language: Kinyarwanda Communication Ability: Effective Cooker Sulfite Required: No Beliefs That Will Affect Care: None Current Living Situation: Alone Feels Safe at Home: Yes Assistive Devices: None Review of Systems Constitutional: no fever and no chills Eyes: + corrective lenses Ear, Nose, Mouth, Throat: no hearing loss Respiratory: no cough Cardiovascular: no chest pain Gastrointestinal: no abdominal pain, no nausea and no vomiting Genitourinary: as per Subjective / HPI Musculoskeletal: no back pain Integumentary: no rash Neurologic: no localized weakness Physical Exam Constitutional: WD/WN, vitals as above Eyes: Wears glasses ENMT: Ears: no hearing impairment and no external ear abnormality Mouth: no oropharynx abnormality Neck: trachea midline Respiratory: normal respiratory effort; no respiratory distress and no labored breathing Cardiovascular: Rate/Rhythm: regular rate and regular rhythm Gastrointestinal (Abdomen): Abdomen is soft and nonrigid. It is nondistended. There is no pain with palpation Musculoskeletal: No calf tenderness Skin: no rashes Neurologic: moves all extremities Psychiatric: A+Ox3, euthymic affect Genitourinary: With female nurse supervisor intermediates present the patient's perineum was examined. The patient did have a ureteral stent noted that was protruding from her urethral orifice. Results & Data Vital Signs (Past 12 Hours) Vital Signs Temp Pulse Pulse Resp BP BP Pulse Ox 02/19/23 01:37 70 02/19/23 01:32 73 12 141/91 H 98 02/19/23 00:17 36 C L 79 16 172/98 H 97 O2 Del Method 02/19/23 01:37 02/19/23 01:32 Room Air 02/19/23 00:17 Room Air PG Care Time/CCT Total # of Minutes Spent Total Time Spent with Patient: Total time spent is greater than 50% in coordination of care (as documented) at patient's floor/unit and/or counseling patient: Coding Level of Care Code 64774 IN/OBS CONSULT LVL 5,80M Diagnoses Bilateral ureteral calculi N20.1
[2023-02-19 02:13] LABS: Appearance Urine Cloudy (Clear); Bilirubin Urine 1+ (Negative); Blood Urine 3+ (Negative); Color Urine Red; Glucose Urine UA Negative (Negative); Ketones Urine Trace (Negative); Leukocyte Esterase Urine Negative (Negative); Nitrite Urine Negative (Negative); Protein Urine 3+ (Negative); Specific Gravity Urine 1.025 (1.000-1.030); Urobilinogen Urine Negative (Negative)
[2023-02-19 03:25] LABS: Epithelial Cell Urine 0-5 /lpf (0-5); RBC Urine >30 /hpf (0-4)
[2023-02-19 03:26] LABS: Bacteria Urine Negative (Negative)
--- NOTE | 2023-02-19 03:42 | History & Physical Report ---
Date of Service February 19, 2023 Assessment & Plan (1) Mechanical complication of ureteral stent: (2) Calculus of distal left ureter: (3) Right distal ureteral calculus: (4) Bilateral hydronephrosis: (5) Primary hyperparathyroidism: (6) Hypercalcemia: Plan Bilateral ureteral stent complication/bilateral distal ureteral calculi- Right ureteral stent was externally visible, and removed by urology in the ED Left ureteral stent is out of place Admit to medical surgical floor for urologic treatment NPO NSS at 80 mils per hour Follow urine culture and sensitivity Cipro 400 mg IV every 12 hours Acetaminophen 650 mg by mouth every 6 hours as needed for mild pain or fever Morphine sulfate 4 mg IV every 3 hours as needed for moderate to severe pain Zofran 4 mg IV every 6 hours as needed Tamsulosin 0.4 mg daily Consult urology Primary hyperparathyroidism/hypercalcemia- Calcium is now increased to 12.1 Labs from 02/16/2023: 25 hydroxy vitamin D 15.3, intact PTH 210.1 IV fluids as noted above Pamidronate 60 mg IV x1 History of Present Illness Chief Complaint: The patient presents to the emergency department after noting that a piece of the ureteral stent that was just placed was protruding outward causing discomfort, and she was noticing urinary incontinence Primary Care Provider: Amaris Mariscal DO The patient is a 47-year-old female with a past medical history including right distal ureteral calculus, hypercalcemia, primary hyperparathyroidism, and bilateral hydronephrosis. She was admitted from 02/15-02/17/2023 due to bilateral hydronephrosis with a 7 mm right distal ureteral stone and a 5 mm left vesicoureteral junction stone. She had bilateral ureteral stents placed on 02/16, and was discharged on oxycodone, Zofran, tamsulosin, Cipro and Cinacalcet. She noted earlier in the day today that one of the stents appeared to be protruding, causing pelvic pain and urinary incontinence. In the emergency department urology removed the right stent, and x-ray revealed that the left stent was out of place. At that point it was decided for the patient to be admitted to the hospital medicine service Allergies Allergy/AdvReac Type Severity Reaction Status Date / Time amoxicillin Allergy SHORT OF Unverified 02/15/23 02:30 BREATH Home Medications Medication Instructions Recorded Confirmed Type acetaminophen 500 mg tablet 500 mg PO Q6H PRN Pain 02/15/23 02/19/23 History (Tylenol Extra Strength) aspirin 325 mg tablet 325 - 650 mg PO DAILY PRN Pain 02/15/23 02/19/23 History ondansetron 4 mg disintegrating 4 - 8 mg PO Q8H PRN nausea and 02/15/23 02/19/23 Rx tablet vomiting #14 tabs oxycodone 5 mg tablet 5 mg PO Q6H PRN pain #12 tabs 02/15/23 02/19/23 Rx tamsulosin 0.4 mg capsule (Flomax) 0.4 mg PO DAILY #5 caps 02/15/23 02/19/23 Rx cinacalcet 30 mg tablet (Sensipar) 30 mg PO BID 30 days #60 tabs 02/17/23 02/19/23 Rx ciprofloxacin HCl 500 mg tablet 500 mg PO BID 4 days #8 tabs 02/17/23 02/19/23 Rx Past Med/Surg History Medical History No chronic diseases present Surgical History No significant past surgical history Social History Smoking Status: Never smoker Second Hand Exposure: No; Do You Dip or Chew Tobacco: No; Hx Alcohol Use: Yes Hx Substance Use: No Preferred Language: Maltese Communication Ability: Effective Nail Cutter Required: No Beliefs That Will Affect Care: None Current Living Situation: Alone Feels Safe at Home: Yes Assistive Devices: None Review of Systems Review of Systems: The patient denies chest pain, palpitations, shortness of breath, dyspnea on exertion, cough, lower extremity swelling, sore throat, fevers, chills, sweats, weight change, fatigue, nausea, vomiting, diarrhea , constipation, abdominal pain, pelvic pain, blood in urine or stool, lightheadedness, dizziness, headache, memory loss, loss of consciousness, rash, abnormal bruising or bleeding, imbalance, focal or generalized weakness, numbness or tingling in arms or legs, generalized arthralgias or myalgias, back or neck pain, or night sweats. The review of systems is otherwise negative other than for that already noted above, and at least 10 systems have been reviewed. Physical Exam Physical Exam: The patient is awake, alert and oriented 3, well developed and well nourished, normocephalic and atraumatic, lying in bed and in no acute distress. HEENT--PERRL, EOMI, mucous membranes and oropharynx normal. Neck--supple. No JVD. No bruits. Thyroid normal, trachea midline, no adenopathy. Heart--normal S1 and S2. No murmurs, rubs or gallops. Lungs--clear bilaterally, no respiratory distress, no accessory muscle use. Abdomen--normal bowel sounds and soft. Nontender. Nondistended, no hernias or masses, no organomegaly. Extremities--no cyanosis or clubbing. No edema. Dermatologic--normal skin turgor, normal color, no abnormal lymph nodes, no rash. Neurologic--cranial nerves II through XII grossly intact. Rheumatologic--normal range of motion. Psychiatric--normal affect. Results & Data Results & Data Vital Signs (Past 12 Hours) Vital Signs Temp Pulse Pulse Resp BP BP Pulse Ox 02/19/23 01:37 70 02/19/23 01:32 73 12 141/91 H 98 02/19/23 00:17 36 C L 79 16 172/98 H 97 O2 Del Method 02/19/23 01:37 02/19/23 01:32 Room Air 02/19/23 00:17 Room Air Laboratory Results Laboratory Results WBC 8.05 K/ul (4.8-10.8) 02/19/23 00:35 RBC 4.48 M/uL (4.20-5.40) 02/19/23 00:35 Hgb 13.2 g/dl (12.0-16.0) 02/19/23 00:35 Hct 39.5 % (37.0-47.0) 02/19/23 00:35 MCV 88.2 fL (80.0-100.0) 02/19/23 00:35 MCH 29.5 pg (25.0-34.0) 02/19/23 00:35 MCHC 33.4 g/dL (32.0-36.0) 02/19/23 00:35 RDW Std Deviation 38.9 fL (36.4-46.3) 02/19/23 00:35 RDW Coeff of Jeyson 12.2 % (11.5-14.5) 02/19/23 00:35 Plt Count 293 K/uL (130-400) 02/19/23 00:35 MPV 9.4 fL (9.4-12.4) 02/19/23 00:35 Immature Gran % (Auto) 0.4 % 02/19/23 00:35 Neut % (Auto) 54.5 % 02/19/23 00:35 Lymph % (Auto) 31.6 % 02/19/23 00:35 [place] % (Auto) 10.1 % 02/19/23 00:35 Eos % (Auto) 2.7 % 02/19/23 00:35 Baso % (Auto) 0.7 % 02/19/23 00:35 Neut # (Auto) 4.39 K/uL (1.40-6.50) 02/19/23 00:35 Lymph # (Auto) 2.54 K/uL (1.20-3.40) 02/19/23 00:35 [place] # (Auto) 0.81 K/uL (0.11-0.59) H 02/19/23 00:35 Eos # (Auto) 0.22 K/uL (0.00-0.50) 02/19/23 00:35 Baso # (Auto) 0.06 K/uL (0.00-0.20) 02/19/23 00:35 Immature Gran # (Auto) 0.03 K/uL (0.01-0.20) 02/19/23 00:35 Sodium 137 mmol/L (136-145) 02/19/23 00:35 Potassium 3.4 mmol/L (3.5-5.1) L 02/19/23 00:35 Chloride 105 mmol/L (98-107) 02/19/23 00:35 Carbon Dioxide 25 mmol/L (21-32) 02/19/23 00:35 Anion Gap 7 (3-11) 02/19/23 00:35 BUN 17 mg/dl (6-23) 02/19/23 00:35 Creatinine 1.07 mg/dl (0.6-1.2) 02/19/23 00:35 Est Cr Clr Drug Dosing 80.2 ml/min 02/19/23 00:35 Est GFR ( Amer) 70.6 ml/min 02/19/23 00:35 Est GFR (Non-Af Amer) 60.9 ml/min 02/19/23 00:35 BUN/Creatinine Ratio 15.9 (10-20) 02/19/23 00:35 Glucose 92 mg/dl (70-99(Fasting)) 02/19/23 00:35 Calcium 12.1 mg/dl (8.6-10.3) H* 02/19/23 00:35 Total Bilirubin 0.3 mg/dl (0.2-1.0) 02/19/23 00:35 AST 24 U/L (13-39) 02/19/23 00:35 ALT 43 U/L (7-52) 02/19/23 00:35 Alkaline Phosphatase 102 U/L (34-104) 02/19/23 00:35 Total Protein 7.2 gm/dl (6.0-8.3) D 02/19/23 00:35 Albumin 4.4 gm/dl (3.4-5.0) 02/19/23 00:35 Globulin 2.8 gm/dl (2.5-4.0) 02/19/23 00:35 Albumin/Globulin Ratio 1.6 (0.9-2) 02/19/23 00:35 Urine Color Red 02/19/23 01:30 Urine Appearance Cloudy (Clear) A 02/19/23 01:30 Urine pH 6.0 (4.5-7.5) 02/19/23 01:30 Ur Specific [place] 1.025 (1.000-1.030) 02/19/23 01:30 Urine Protein 3+ (Negative) H 02/19/23 01:30 Urine Glucose (UA) Negative (Negative) 02/19/23 01:30 Urine Ketones Trace (Negative) H 02/19/23 01:30 Urine Blood 3+ (Negative) H 02/19/23 01:30 Urine Nitrite Negative (Negative) 02/19/23 01:30 Urine Bilirubin 1+ (Negative) H 02/19/23 01:30 Urine Urobilinogen Negative (Negative) 02/19/23 01:30 Ur Leukocyte Esterase Negative (Negative) 02/19/23 01:30 Urine RBC >30 /hpf (0-4) H 02/19/23 01:30 Urine WBC 10-30 /hpf (0-5) H 02/19/23 01:30 Ur Epithelial Cells 0-5 /lpf (0-5) 02/19/23 01:30 Urine Bacteria Negative (Negative) 02/19/23 01:30 Code Status & VTE Plan Code Status Full code VTE Prophylaxis Plan VTE Prophylaxis will be ordered: Yes PG Care Time/CCT Total # of Minutes Spent Total Time Spent with Patient: Total time spent is greater than 50% in coordination of care (as documented) at patient's floor/unit and/or counseling patient: Coding Level of Care Code 56007 INT INP/OBS CARE 3/75MIN Diagnoses Mechanical complication of ureteral stent T83.193A Calculus of distal left ureter N20.1 Right distal ureteral calculus N20.1 Bilateral hydronephrosis N13.30 Primary hyperparathyroidism E21.0 Hypercalcemia E83.52
[2023-02-19] MEDS: SODIUM CHLORIDE 0.9% 1,000 ML IV SCH ×2 (04:03→19:50)
[2023-02-19] MEDS ORDERED: PAMIDRONATE DISODIUM 60 MG in SODIUM CHLORIDE 0.9% 1,000 ML IV STA (04:13)
--- NOTE | 2023-02-19 04:15 | Emergency Department Note ---
History of Present Illness General Chief complaint: Kidney Stone Stated complaint: STENTS PUT IN FOR KIDNEY STONE,COMING OUT Time Seen by Provider: 02/19/23 01:18 History of Present Illness This 47-year-old female presents the ER complaining of her ureteral stent falling out and being incontinent. Patient had 2 stents placed the other day by Dr. Simon. Patient denies chest pain, dyspnea, abdominal pain, flank pain, fever, chills, flulike illness. No other concerns per patient. Home Medications Medication Instructions Recorded Confirmed Type acetaminophen 500 mg tablet 500 mg PO Q6H PRN Pain 02/15/23 02/19/23 History (Tylenol Extra Strength) aspirin 325 mg tablet 325 - 650 mg PO DAILY PRN Pain 02/15/23 02/19/23 History ondansetron 4 mg disintegrating 4 - 8 mg PO Q8H PRN nausea and 02/15/23 02/19/23 Rx tablet vomiting #14 tabs oxycodone 5 mg tablet 5 mg PO Q6H PRN pain #12 tabs 02/15/23 02/19/23 Rx tamsulosin 0.4 mg capsule (Flomax) 0.4 mg PO DAILY #5 caps 02/15/23 02/19/23 Rx cinacalcet 30 mg tablet (Sensipar) 30 mg PO BID 30 days #60 tabs 02/17/23 02/19/23 Rx ciprofloxacin HCl 500 mg tablet 500 mg PO BID 4 days #8 tabs 02/17/23 02/19/23 Rx Allergies Allergy/AdvReac Type Severity Reaction Status Date / Time amoxicillin Allergy SHORT OF Unverified 02/15/23 02:30 BREATH Past Med/Surg History Medical History No chronic diseases present Surgical History No significant past surgical history Social History Smoking Status: Never smoker Second Hand Exposure: No; Do You Dip or Chew Tobacco: No; Hx Alcohol Use: Yes Hx Substance Use: No Preferred Language: [place] Leonean Communication Ability: Effective 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 Required: No Beliefs That Will Affect Care: None Current Living Situation: Alone Feels Safe at Home: Yes Assistive Devices: None Review of Systems A total of 10 systems reviewed and were otherwise negative Physical Exam Vital Signs Vital Signs - 24 hr 02/19/23 00:17 02/19/23 01:32 02/19/23 01:37 Temperature 36 C L Temperature Source Temporal Artery Scan Pulse Rate 79 70 Pulse Rate [Apical] 73 Pulse Rhythm [Apical] Regular Pulse Strength [Apical] Normal Respiratory Rate 16 12 Respiratory Effort / Characteristics Non-Labored Respiratory Depth Normal Respiratory Pattern Regular Blood Pressure 172/98 H Blood Pressure [Right Arm] 141/91 H Blood Pressure Mean 122 Blood Pressure Mean [Right Arm] 107 Pulse Oximetry 97 98 Oxygen Delivery Method Room Air Room Air Sepsis Recent Fever Within 48 Hours No Sepsis New/Unexplained Change in Mental Status No Sepsis Action Taken by Nursing No Action Required VITALS: Vitals are noted on the nurse's note and reviewed by myself. Vital signs stable. GENERAL: Pleasant female, in no acute distress, nondiaphoretic, well-developed well-nourished. SKIN: The skin was without rashes, erythema, edema, or bruising. There is no tenting of the skin. Capillary reflex less than 2 seconds. HEAD: Normocephalic atraumatic. EARS: External auditory canals clear, EYES: Pupils equal round and reactive to light and accommodation. Conjunctivae without injection, sclerae without icterus. Extraocular movements intact. NOSE: Patent, turbinates without inflammation or discharge. MOUTH: Mucous membranes moist. Pharynx without erythema or exudate. Uvula midline. Airway patent. Tongue does not deviate. NECK: Supple without nuchal rigidity. No lymphadenopathy. No thyromegaly. Cervical spine is nontender. No JVD. HEART: Regular rate and rhythm LUNGS: Clear to auscultation bilaterally without wheezes, rales or rhonchi. No retractions or accessory muscle use. ABDOMEN: Positive bowel sounds x 4. Normal tympanic percussion. Soft, nontender, without masses or organomegaly. Slaughter sign negative. No guarding or rebound tenderness. No CVA tenderness MUSCULOSKELETAL: No muscle atrophy, erythema, or edema noted. NEURO: Patient was alert and oriented to person place and time. Normal sensation to light and sharp touch. No focal neurological deficits. Medical Decision Making Medical Records Attestation: I reviewed the patient's medical records. Home Medications Current Medication List: was personally reviewed by me Laboratory Data Attestation: I reviewed the patient's lab results. 02/19/23 00:35 02/19/23 00:35 Lab Results 02/19/23 02/19/23 02/19/23 Range/Units 00:35 00:35 01:30 WBC 8.05 (4.8-10.8) K/ul RBC 4.48 (4.20-5.40) M/uL Hgb 13.2 (12.0-16.0) g/dl Hct 39.5 (37.0-47.0) % MCV 88.2 (80.0-100.0) fL MCH 29.5 (25.0-34.0) pg MCHC 33.4 (32.0-36.0) g/dL RDW Std Deviation 38.9 (36.4-46.3) fL RDW Coeff of Jeyson 12.2 (11.5-14.5) % Plt Count 293 (130-400) K/uL MPV 9.4 (9.4-12.4) fL Immature Gran % (Auto) 0.4 % Neut % (Auto) 54.5 % Lymph % (Auto) 31.6 % King % (Auto) 10.1 % Eos % (Auto) 2.7 % Baso % (Auto) 0.7 % Neut # (Auto) 4.39 (1.40-6.50) K/uL Lymph # (Auto) 2.54 (1.20-3.40) K/uL King # (Auto) 0.81 H (0.11-0.59) K/uL Eos # (Auto) 0.22 (0.00-0.50) K/uL Baso # (Auto) 0.06 (0.00-0.20) K/uL Immature Gran # (Auto) 0.03 (0.01-0.20) K/uL Sodium 137 (136-145) mmol/L Potassium 3.4 L (3.5-5.1) mmol/L Chloride 105 (98-107) mmol/L Carbon Dioxide 25 (21-32) mmol/L Anion Gap 7 (3-11) BUN 17 (6-23) mg/dl Creatinine 1.07 (0.6-1.2) mg/dl Est Cr Clr Drug Dosing 80.2 ml/min Est GFR ( Amer) 70.6 ml/min Est GFR (Non-Af Amer) 60.9 ml/min BUN/Creatinine Ratio 15.9 (10-20) Glucose 92 (70-99(Fasting)) mg/dl Calcium 12.1 H* (8.6-10.3) mg/dl Total Bilirubin 0.3 (0.2-1.0) mg/dl AST 24 (13-39) U/L ALT 43 (7-52) U/L Alkaline Phosphatase 102 (34-104) U/L Total Protein 7.2 D (6.0-8.3) gm/dl Albumin 4.4 (3.4-5.0) gm/dl Globulin 2.8 (2.5-4.0) gm/dl Albumin/Globulin Ratio 1.6 (0.9-2) Urine Color Red Urine Appearance Cloudy A (Clear) Urine pH 6.0 (4.5-7.5) Ur Specific [place] 1.025 (1.000-1.030) Urine Protein 3+ H (Negative) Urine Glucose (UA) Negative (Negative) Urine Ketones Trace H (Negative) Urine Blood 3+ H (Negative) Urine Nitrite Negative (Negative) Urine Bilirubin 1+ H (Negative) Urine Urobilinogen Negative (Negative) Ur Leukocyte Esterase Negative (Negative) Urine RBC >30 H (0-4) /hpf Urine WBC 10-30 H (0-5) /hpf Ur Epithelial Cells 0-5 (0-5) /lpf Urine Bacteria Negative (Negative) Imaging Data Attestation: I personally reviewed and interpreted this imaging study as follows: MDM Narrative Prior records/ancillary studies reviewed. Triage Nursing notes reviewed. Additional history obtained from nursing The patient's history was concerning for problems with the ureteral stents Differential diagnosis: Etiologies such as renal colic, appendicitis, diverticulitis, mesenteric ischemia, aortic pathology, infections, inflammatory bowel disease, PUD, biliary pathology, UTI, as well as others were entertained. Physical examination findings: As above. ER treatment provided: Urology midlevel, Samm, was consulted On reassessment the patient felt better. Diagnostic interpretation by me: The labs Independently Interpreted by myself revealed hypercalcemia and patient is currently being worked up for hyperparathyroidism. Urinalysis revealed There was no sign of UTI. Imaging studies: KUB shows that the ureteral stent has migrated per my independent interpretation. No free air. Consultation: A consultation was placed with the hospitalist. The case was discussed and diagnostics were reviewed. The patient was evaluated in the ER for further treatment. Urology was consulted and did evaluate the patient. He did pull out 1 the stents that was migrating out. Exam and history seem consistent with ongoing ureteral stones with stents that have migrated. Urology did evaluate the patient and pulled out the stent. Medicine was consulted and will evaluate the patient for admission. Patient is agreeable and will be admitted. By the evaluation outlined above emergent etiologies such as appendicitis, diverticulitis, mesenteric ischemia, aortic pathology, inflammatory bowel disease, PUD, biliary pathology, as well as others were deemed relatively unlikely. The pt informed about the findings as listed above. All questions were answered and pleased with the treatment. The chart was completed utilizing [employer] voice recognition software. Grammatical errors, random word insertions, pronoun errors, and incomplete sentences are an occassional consequence of this system due to software limitations, ambient noise, and hardware issues. Any formal questions or concerns about the content, text, or information contained within the body of this dictation should be directly addressed to the physician assistant clinical nurse manager for clarification. Impression & Plan Hypercalcemia, Migration of ureteral stent, Bilateral kidney stones Discharge Plan Visit Data Chief Complaint: Kidney Stone Stated Complaint: STENTS PUT IN FOR KIDNEY STONE,COMING OUT ED Provider: Ariella Montoya ED Midlevel Provider: Dali Mcintosh Discharge Problem: Hypercalcemia, Migration of ureteral stent, Bilateral kidney stones Patient Disposition: Admitted As Inpatient Condition: Good Forms Stand Alone Forms: My [facility] [employer] Prescriptions Prescriptions: No Action ciprofloxacin HCl 500 mg tablet 500 mg PO BID 4 Days Qty: 8 0RF cinacalcet [Sensipar] 30 mg tablet 30 mg PO BID 30 Days Qty: 60 0RF aspirin 325 mg Tablet 325 - 650 mg PO DAILY PRN (Reason: Pain) acetaminophen [Tylenol Extra Strength] 500 mg Tablet 500 mg PO Q6H PRN (Reason: Pain) oxycodone 5 mg tablet 5 mg PO Q6H PRN (Reason: pain) Qty: 12 0RF tamsulosin [Flomax] 0.4 mg capsule 0.4 mg PO DAILY Qty: 5 0RF ondansetron 4 mg tablet,disintegrating 4 - 8 mg PO Q8H PRN (Reason: nausea and vomiting) Qty: 14 0RF Referrals Referrals: Amaris Mariscal DO [Primary Care Provider] -
[2023-02-19] MEDS ORDERED: ACETAMINOPHEN 325 MG TAB PO PRN (06:46)
[2023-02-19] MEDS ORDERED: ONDANSETRON INJ 2 MG/ML 2 ML VIAL IV PRN (06:46)
--- NOTE | 2023-02-19 06:54 | Hospitalist Progress Note ---
Date of Service February 19, 2023 Assessment & Plan (1) Mechanical complication of ureteral stent: (2) Calculus of distal left ureter: (3) Right distal ureteral calculus: (4) Bilateral hydronephrosis: (5) Primary hyperparathyroidism: (6) Hypercalcemia: Plan #Bilateral ureteral stent complication/bilateral distal ureteral calculi -Right ureteral stent was externally visible, and removed by urology in the ED -Left ureteral stent malposition on KUB. -Urine cultures pending. -Urology consulted -NSS at 80 mL/h -Cipro 40 mg IV every 12 hours. As needed pain and nausea medications. -Tamsulosin daily -N.p.o. after midnight for possible stent removal tomorrow. #Primary hyperparathyroidism/hypercalcemia -Calcium is now increased to 12.1 -Labs from 02/16/2023: 25 hydroxy vitamin D 15.3, intact PTH 210.1 -IV fluids as noted above -Pamidronate x1 on admission, will restart Sensipar 30 mg twice daily. Admission and Anticipated Discharge Date Admission Date: February 19, 2023 Supervising Physician Co-Signing Physician Notes I personally examined the patient and verified all ace points of history and exam, discussed case, and agree with decision making with Dr Mujica feeling okay right now, but had more pain. Notes that she would much prefer to just get procedures done while she is still here in the hospital. Discussed with urologythey cannot guarantee ability to do procedure tomorrow, but feel it is probable that it can get done. After discussing this with patient, she opts to stay. Vitals noted, in general she is awake and alert pleasant no distress. HEENT normocephalic atraumatic mucous membranes moist. Breathing unlabored no accessory muscle use good effort. Skin shows no rashes no pallor or icterus. Neuro without focal deficits. [facility]reterolithiasis and [facility] Continue to remain in the hospitalfor pain control primary hyperparathyroidismlikely to need treatment beyond med management. Discussed this with patient during last admission. PCP will assume care in this regard. otherwise as above Results & Data Results & Data Vital Signs (Past 12 Hours) Vital Signs Temp Pulse Pulse Resp BP BP Pulse Ox 02/19/23 05:00 02/19/23 05:37 65 02/19/23 01:37 70 02/19/23 01:32 73 12 141/91 H 98 02/19/23 00:17 36 C L 79 16 172/98 H 97 O2 Del Method 02/19/23 05:00 Room Air 02/19/23 05:37 02/19/23 01:37 02/19/23 01:32 Room Air 02/19/23 00:17 Room Air Resident Activity Tracking Resident Involvement: Resident Care Provided Care Provided: Adult Hospital Medicine
--- NOTE | 2023-02-19 07:24 | XRay Report ---
KUB HISTORY: Left-sided kidney stone kidney stone (bilateral) COMPARISON: Fluoroscopic images 02/16/2023, CT abdomen and pelvis 02/15/2023 FINDINGS: Moderate fecal retention in the right hemicolon. The bowel gas pattern is nonobstructive. T he renal shadows are obscured by bowel gas. Status post removal of the right ureteral stent. A left u reteral stent is in place which appears to have migrated inferiorly approximately 6 cm. No renal irwin culi. No ureteral calculi. No pneumoperitoneum or pneumatosis. No fracture. IMPRESSION: 1. Malpositioned left ureteral stent. 2. No renal or ureteral calculi identified. ACT 112: Negative or not required by law. The above report was generated using voice recognition software. It may contain grammatical, syntax o r spelling errors. Electronically signed by: Rene Escalante M.D. 02/19/2023 7:22 AM
[2023-02-19] MEDS: TAMSULOSIN HCL 0.4 MG CAP PO SCH (09:24)
[2023-02-19] MEDS: CIPROFLOXACIN / D5W 400 MG/200 ML BAG IV SCH ×2 (09:24→20:54)
[2023-02-19] MEDS: CINACALCET HCL 30 MG TAB PO SCH ×2 (11:37→16:59)
--- NOTE | 2023-02-19 18:00 | Billing Data ---
Date of Service February 19, 2023 Coding Level of Care Code 94316 SUB INP/OBS CARE
--- NOTE | 2023-02-20 07:03 | Hospitalist Progress Note ---
Date of Service February 20, 2023 Assessment & Plan (1) Mechanical complication of ureteral stent: (2) Calculus of distal left ureter: (3) Right distal ureteral calculus: (4) Bilateral hydronephrosis: (5) Primary hyperparathyroidism: (6) Hypercalcemia: Plan #Bilateral ureteral stent complication/bilateral distal ureteral calculi -Right ureteral stent was externally visible, and removed by urology in the ED -Left ureteral stent malposition on KUB. -Urine cultures pending. -Urology consulted -NSS at 80 mL/h -Cipro 40 mg IV every 12 hours. As needed pain and nausea medications on board. -Tamsulosin daily -Patient will have stones removed today in the OR. -We will most likely need to stay overnight and plan to discharge on 02/21 #Primary hyperparathyroidism/hypercalcemia -Calcium is now increased to 12.1 -Labs from 02/16/2023: 25 hydroxy vitamin D 15.3, intact PTH 210.1 -IV fluids as noted above -Pamidronate x1 on admission, will restart Sensipar 30 mg twice daily. Admission and Anticipated Discharge Date Admission Date: February 19, 2023 Supervising Physician Co-Signing Physician Notes I personally examined the patient and verified all ace points of history and exam, discussed case, and agree with decision making with Dr Mujica pain reasonably controlled but just had IV morphine. d/w urology - assistance appreciated. pt notes with current degree of pain she would prefer to stay into tomorrow, which seems reasonable. Vitals noted, in general she is awake and alert pleasant no distress. HEENT normocephalic atraumatic mucous membranes moist. Breathing unlabored no accessory muscle use good effort. Skin shows no rashes no pallor or icterus. Neuro without focal deficits. Ureterolithiasis and stent issuesstatus post OR again today. Continue to remain in the hospital for pain control - hopefully home tomorrow primary hyperparathyroidismlikely to need treatment beyond med management. Discussed this with patient during last admission. PCP will assume care in this regard. otherwise as above Subjective Patient seen bedside this morning. She is currently n.p.o. awaiting to have started moving the OR. She states that she has no issues at this time. Review of Systems Review of Systems: All systems reviewed & are unremarkable except as noted in Subjective Physical Exam Physical Exam: Constitutional: well-appearing, no acute distress HEENT: NCAT, no conjunctival injection CV: regular rhythm, no murmur appreciated, extremities well-perfused, no LE edema Resp: CTABL, no wheezes/rales/rhonchi appreciated, no increased work of breathing GI: soft, nondistended, nontender, BS normoactive MSK: no gross deformities appreciated Skin: warm, dry, no rash appreciated Neuro: alert, oriented, no focal neurologic deficit appreciated Results & Data Results & Data Vital Signs (Past 12 Hours) Vital Signs Temp Pulse Resp BP Pulse Ox O2 Del Method 02/19/23 21:48 36.7 C 79 16 129/85 96 Room Air 02/19/23 20:17 Room Air Resident Activity Tracking Resident Involvement: Resident Care Provided Care Provided: Adult Hospital Medicine
[2023-02-20 07:36] LABS: Hematocrit (blood only) 36.1 % (37.0-47.0); Hemoglobin 12.2 g/dl (12.0-16.0); Mean Corpuscular Hemoglobin 29.6 pg (25.0-34.0); Mean Corpuscular Hgb Conc 33.8 g/dL (32.0-36.0); Mean Corpuscular Volume 87.6 fL (80.0-100.0); Mean Platelet Volume 9.1 fL (9.4-12.4); Platelet Count 245 K/uL (130-400); RDW Standard Deviation 38.5 fL (36.4-46.3); Red Blood Count 4.12 M/uL (4.20-5.40); White Blood Count 5.88 K/ul (4.8-10.8)
--- NOTE | 2023-02-20 07:36 | Urology Progress Note ---
Date of Service February 20, 2023 Assessment & Plan (1) Migration of ureteral stent: (2) Bilateral ureteral calculi: (3) Bilateral hydronephrosis: Plan 47yo/F who was found to have bilateral ureteral stones and underwent bilateral ureteral stent placement on 02/16/23 readmitted due to stent malposition- Right stent now out; Malpositioned left ureteral stent. - Afebrile, hemodynamically stable. - Labs reviewed - WBC 5.88, Hemoglobin 12.2, Creatinine 0.84. - Urine culture 02/15 and 02/16 negative. Repeat UC pending. - Plan for OR today for cystoscopy, bilateral retrograde pyelogram, bilateral ureteral stent placement, possible ureteroscopy, laser lithotripsy/stone treatme nt depending on findings. - Risks and benefits discussed as per consent. - Patient agreeable to plan, all questions were answered. - Covered with scheduled IV Cipro. - Keep NPO. - Urology will follow. Attending note: Independently evaluated, assessed, and examined. Agree with above. Risks and benefits discussed at length for procedure. These include bleeding, infection, injury to surrounding tissues or organs, and risks associated with anesthesia. Patient states understanding and agrees to proceed. Will sign consent and proceed. Plan for cystoscopy with possible bilateral stone treatment. Admission and Anticipated Discharge Date Admission Date: February 19, 2023 Subjective Pt examined at bedside this AM. Awake, resting in bed on arrival. No acute distress. No fevers, chills, nausea, vomiting. Has been NPO. Review of Systems Constitutional: as per Subjective / HPI Gastrointestinal: as per Subjective / HPI Genitourinary: as per Subjective / HPI Physical Exam Constitutional: well developed and well nourished; no acute distress Respiratory: normal respiratory effort; no respiratory distress and no labored breathing Skin: No visible rashes or lesions to exposed skin areas Neurologic: moves all extremities and awake Psychiatric: A+Ox3, euthymic affect Results & Data Vital Signs (Past 12 Hours) Vital Signs Temp Pulse Resp BP Pulse Ox O2 Del Method 02/20/23 07:04 36.6 C 76 16 124/70 96 Room Air 02/19/23 21:48 36.7 C 79 16 129/85 96 Room Air 02/19/23 20:17 Room Air PG Care Time/CCT Total # of Minutes Spent Total Time Spent with Patient: Total time spent is greater than 50% in coordination of care (as documented) at patient's floor/unit and/or counseling patient: Coding Level of Care Code 43644 SUB INP/OBS CARE MIN Diagnoses Migration of ureteral stent T83.122A Bilateral ureteral calculi N20.1 Bilateral hydronephrosis N13.30
[2023-02-20 08:32] LABS: Albumin Globulin Ratio 1.6 (0.9-2); Albumin Level 3.7 gm/dl (3.4-5.0); BUN Creatinine Ratio 11.9 (10-20); Bilirubin,Total 0.5 mg/dl (0.2-1.0); Calcium 9.3 mg/dl (8.6-10.3); Creatinine Clr Calc Pharmacy 101.1 ml/min; Est GFR (African American) 94.6 ml/min; Est GFR (Non-African American) 81.6 ml/min; Globulin 2.3 gm/dl (2.5-4.0); Potassium 3.3 mmol/L (3.5-5.1)
[2023-02-20] MEDS: TAMSULOSIN HCL 0.4 MG CAP PO SCH (08:32)
[2023-02-20] MEDS: SODIUM CHLORIDE 0.9% 1,000 ML IV SCH ×2 (08:33→17:07)
[2023-02-20] MEDS: CIPROFLOXACIN / D5W 400 MG/200 ML BAG IV SCH ×2 (08:34→19:55)
[2023-02-20] MEDS: CINACALCET HCL 30 MG TAB PO SCH ×2 (08:35→17:07)
--- NOTE | 2023-02-20 11:37 | Anesthesiology Consultation ---
Date of Service February 20, 2023 Assessment & Plan (1) Encounter for pre-operative examination: Chart Review Chart Review: Acceptable Risk for Surgery History Surgery Operation Date: 02/20/23 10:05 Proposed Procedures p Cystoscopy, Bilateral Retrograde Pyelogram, Bilateral Stent Placement, Possible Ureteroscopy, Laser Lithotripsy Stone Treatment - [place], DO Height/Weight Height: 5 ft 11 in Weight: 91.5 kg Allergies Allergy/AdvReac Type Severity Reaction Status Date / Time amoxicillin Allergy SHORT OF Unverified 02/15/23 02:30 BREATH Medications Home Medications Medication Instructions Recorded Confirmed Last Taken acetaminophen 500 mg tablet 500 mg PO Q6H PRN Pain 02/15/23 02/19/23 Unknown (Tylenol Extra Strength) aspirin 325 mg tablet 325 - 650 mg PO DAILY PRN Pain 02/15/23 02/19/23 Unknown ondansetron 4 mg disintegrating 4 - 8 mg PO Q8H PRN nausea and 02/15/23 02/19/23 Unknown tablet vomiting #14 tabs oxycodone 5 mg tablet 5 mg PO Q6H PRN pain #12 tabs 02/15/23 02/19/23 Unknown tamsulosin 0.4 mg capsule (Flomax) 0.4 mg PO DAILY #5 caps 02/15/23 02/19/23 Unknown cinacalcet 30 mg tablet (Sensipar) 30 mg PO BID 30 days #60 tabs 02/17/23 02/19/23 Unknown ciprofloxacin HCl 500 mg tablet 500 mg PO BID 4 days #8 tabs 02/17/23 02/19/23 Unknown cholecalciferol (vitamin D3) 50 50 mcg PO DAILY #30 caps 02/19/23 Unknown mcg (2,000 unit) capsule (Vitamin D3) Active Medications Generic Name Dose Route Start Last Admin Trade Name Freq PRN Reason Stop Dose Admin Cinacalcet 30 mg 02/19/23 10:45 02/20/23 08:35 Cinacalcet Hcl 30 Mg Tab PO 03/21/23 10:44 Not Given BIDM SHERLYN Sodium Chloride 1,000 mls @ 80 mls/hr 02/19/23 03:00 02/20/23 08:33 Nss IV 03/21/23 02:59 80 mls/hr .[id number] SHERLYN Administration Ciprofloxacin 400 mg in 200 mls @ 100 mls/hr 02/19/23 09:00 02/20/23 11:08 Cipro / D5w IV 02/24/23 08:59 Infused Q12H SHERLYN Infusion Protocol Tamsulosin HCl 0.4 mg 02/19/23 09:00 02/20/23 08:32 Tamsulosin Hcl 0.4 Mg Cap PO 03/21/23 08:59 0.4 mg DAILY SHERLYN Administration NPO Date Last Intake of Fluids: 02/20/23 Time Last Intake of Fluids: 08:32 Last Intake of Fluids Comment: sip with am med, npo since MN Date Last Intake of Solids: 02/19/23 Past Medical History Medical History No chronic diseases present Past Surgical History Surgical History No significant past surgical history hx ureteral stent placements Social History Smoking Status: Never smoker Do You Dip or Chew Tobacco: No Hx Alcohol Use: No alcohol intake frequency: holidays/special occasions only Hx Substance Use: No Physical Exam Vital Signs Last Vital Signs Temp 36.8 C 02/20/23 11:14 Pulse 72 02/20/23 11:14 Resp 16 02/20/23 11:14 BP 121/80 02/20/23 11:14 Pulse Ox 96 02/20/23 11:14 O2 Del Method Room Air 02/20/23 11:14 Testing Laboratory Results 02/20/23 06:57 02/20/23 06:57 Urine Color Red 02/19/23 01:30 Urine Appearance Cloudy (Clear) A 02/19/23 01:30 Urine pH 6.0 (4.5-7.5) 02/19/23 01:30 Ur Specific [place] 1.025 (1.000-1.030) 02/19/23 01:30 Urine Protein 3+ (Negative) H 02/19/23 01:30 Urine Glucose (UA) Negative (Negative) 02/19/23 01:30 Urine Ketones Trace (Negative) H 02/19/23 01:30 Urine Nitrite Negative (Negative) 02/19/23 01:30 Ur Leukocyte Esterase Negative (Negative) 02/19/23 01:30 Urine RBC >30 /hpf (0-4) H 02/19/23 01:30 Urine WBC 10-30 /hpf (0-5) H 02/19/23 01:30 Ur Epithelial Cells 0-5 /lpf (0-5) 02/19/23 01:30 02/20/23 07:10 POC Glucose 101 H
[2023-02-20] MEDS ORDERED: LACTATED RINGER'S 1,000 ML IV SCH (13:00)
[2023-02-20] MEDS ORDERED: DEXAMETHASONE SOD INJ 4 MG/ML VIAL ONE (13:26)
[2023-02-20] MEDS ORDERED: ONDANSETRON INJ 2 MG/ML 2 ML VIAL ONE (13:26)
[2023-02-20] MEDS ORDERED: MIDAZOLAM HCL 1 MG/ML 2ML VIAL ONE (13:26)
[2023-02-20] MEDS ORDERED: LIDOCAINE 2% 2 ML VIAL/AMP(20MG/ML) INFIL ONE (13:26)
[2023-02-20] MEDS ORDERED: fentaNYL citrate PF 100 MCG/2 ML VIAL ONE (13:26)
[2023-02-20] MEDS ORDERED: PROPOFOL IV EMULSION 10 MG/ML 20 ML VIAL IV ONE (13:26)
[2023-02-20] MEDS ORDERED: PROMETHAZINE HCL 6.25 MG in SODIUM CHLORIDE 0.9% 50 ML IV PRN (13:49)
[2023-02-20] MEDS ORDERED: fentaNYL citrate PF 100 MCG/2 ML VIAL IV PRN (13:49)
[2023-02-20] MEDS ORDERED: KETOROLAC 30 MG/ML VIAL IV PRN (13:49)
[2023-02-20] MEDS ORDERED: LABETALOL HCL IV 5 MG/ML 20ML IV PRN (13:49)
[2023-02-20] MEDS ORDERED: ATROPINE SULFATE 0.1 MG/ML 10ML SYR IV PRN (13:49)
[2023-02-20] MEDS ORDERED: DIATRIZOATE MEGLUMINE 30% 100ML VIAL INSTIL PRN (14:34)
--- NOTE | 2023-02-20 14:56 | Operative Report ---
PG Post Operative Report Pre & Post Diagnosis Operation Date: 02/20/23 10:05 Pre-Op Diagnosis: Bilateral Ureteral Stones Post-Op Diagnosis: Bilateral Ureteral Stones I identified the patient and participated in the time-out.: Yes Procedure Operation Date: 02/20/23 10:05 Actual Procedures Cystoscopy with Bilateral Retrograde Pyelogram Right Ureteral Stent Placement, Ureteroscopy, Ureteral Dilation, Stone Basket Extraction Right Left Diagnostic Ureteroscopy and Ureteral Stent Removal - Rancho Bowers, Surgeon Rancho Bowers, II, DO Passenger Service Agent None Estimated Blood Loss 1 Findings Consistent with Post-Op Diagnosis No stone or obstruction on the left. Stent removed without issues. Flexible and rigid scope completed. No hydronephrosis or obstruction. Significant Right Hydronephrosis and hydroureter. Stricture of the distal ureter on the right with stone impacted just proximal. Stricture dilated and Stone fragment removed. Specimens Stone Right Ureter Drains 4.8 Fr Multilength on right. Anesthesia Type General Complications none Disposition Disposition: Recovery Room Indications Patient with bothersome stones and bilateral obstruction. Had stents placed with dislodgment of stents bilaterally and complete loss of right stent. Risks and benefits discussed at length. Description of Procedure Patient was consented and brought back to the operating room. Patient was placed under anesthesia in the supine position and moved to the dorsal lithotomy position. Patient was prepped and draped in the regular sterile fashion. A time out was completed. A 30degree Cystoscope was placed into the bladder and the entire bladder was examined. The UO's were identified. On the right, the UO was cannulized with a catheter and a retrograde pyelogram was completed. There was a significant narrowing in the distal ureter near the junction with the mid ureter. There was significant hydroureter and hydronephrosis proximal to this area. Right A wire was then placed. Attention was then taken to the left. The left stent was grasped and partially removed. A wire was then placed. The stent was then completely removed. The ureter was cannulated with a dual-lumen catheter and a retrograde pyelogram was completed. No major obstruction was noted. There was some mild dilation of the ureter/renal pelvis without severe hydronephrosis. The Rigid ureteroscope was taken into the right ureter. The stone was identified just proximal to a severe strictured area. The stone appeared to be impacted in the wall. With manipulation the stone was able to be dislodged. The stricture was dilated. After dilation the stone was grasped and removed and sent for analysis. At this point the scope was able to be advanced up to the UPJ. No additional stones or other obstructions were noted. On previous imaging there was no signs of stones within the renal pelvis. A retrograde pyelogram was completed through the scope. The scope was slowly removed. The area of dilation did have some significant irritation and did not appear to have severe bleeding. They did appear that the lateral wall where the impacted stone had been did have a large amount of edematous changes. The ureter was considerably narrowed compared to the significant hydroureter seen on the proximal portion of the ureter. The wire was maintained. The scope was completely removed. Due to the significant edematous changes from the impacted stone as well as the area of stricture was decided to leave a stent. A longer stent was utilized due to the dislodging of the previous stent. A 4.8 Macanese multilength stent was then placed over the wire into the renal pelvis. It appeared to be in good position and was set to drainage. Attention was then taken to the left side. The wire had previously been placed. The rigid scope was advanced into the ureter. The entire ureter was examined. No considerable areas of stricture or narrowing were noted. There were no signs of any stones within the distal mid ureter. The scope was then advanced to the proximal ureter. The ureter in this section was mildly dilated but did not appear to be hydronephrotic. There was no signs of stones or other issue. A second wire was then placed and the rigid scope removed. The flexible scope was then taken over the second wire and advanced to the proximal ureter and renal pelvis. The entire pelvis was examined There were no signs of stones or other issues within the renal pelvis there was a small amount of blood clot that appeared to be old likely from the previous stent. The scope was slowly removed with the wire left in place. Contrast was placed through the scope for a pyelogram to assist in stent placement. The entire ureter was examined as the scope was slowly removed. No obstructions or other areas of concern were noted. Drainage films showed good drainage from the left kidney. No major signs of obstruction. There was no considerable or major edematous changes within the ureter. As this all had looked fairly stable it was decided to not leave a stent on the left side. With the left stent removed and the right stent in place, the bladder was emptied. The scope was removed. The patient was cleaned, aroused from anesthesia, and transferred to the pacu in stable condition having tolerated the procedure well with no complications. I was present and participated in all aspects of the procedure. The patient will be monitored in the PACU until transferred. We will plan to remove right stent in approximately 1 to 2 weeks in office. I attest to the content of the Intraoperative Record and any orders documented therein. Any exceptions are noted below.
--- NOTE | 2023-02-20 15:28 | Anesthesiology Progress Note ---
Date of Service February 20, 2023 Anesthesia Post Procedure Vital Signs Vital Signs: Temp Pulse Pulse Resp BP BP Pulse Ox 02/20/23 15:05 97.9 F 68 20 125/78 98 02/20/23 14:55 97.9 F 69 18 129/81 99 02/20/23 14:46 97.9 F 74 12 130/88 97 02/20/23 13:05 98.2 F 77 18 151/96 H 97 02/20/23 11:14 98.2 F 72 16 121/80 96 02/20/23 07:04 97.9 F 76 16 124/70 96 02/19/23 21:48 98.1 F 79 16 129/85 96 02/19/23 20:17 02/19/23 15:46 97.9 F 72 16 127/82 96 O2 Del Method O2 Flow Rate 02/20/23 15:05 Oxymask 3 02/20/23 14:55 Oxymask 5 02/20/23 14:46 Oxymask 5 02/20/23 13:05 Room Air 02/20/23 11:14 Room Air 02/20/23 07:04 Room Air 02/19/23 21:48 Room Air 02/19/23 20:17 Room Air 02/19/23 15:46 Room Air Pain Intensity Vaginal: Pain Intensity: 0 Transfer of Care Handoff Completed per policy Notes Mental Status: alert / awake / arousable and participated in evaluation Patient Amnestic to Procedure: Yes Nausea / Vomiting: adequately controlled Pain: adequately controlled Airway Patency, RR, SpO2: stable & adequate BP & HR: stable & adequate Hydration State: stable & adequate Anesthetic Complications: no major complications apparent and Pt Satisfied with anesthetic care
[2023-02-20] MEDS: MoRPHine SULFATE 4 MG/ML 1 ML CARP\\VIAL IV PRN ×2 (15:38→19:52)
--- NOTE | 2023-02-20 15:47 | Fluoroscopy Report ---
FL retrograde includes kub CLINICAL HISTORY: BILAT CYSTO STENT TECHNIQUE: 4 views were obtained with the C-arm in the OR with the above procedure. Total fluoroscopy time was 91.6 seconds. Radiation dose was 16.84 mGy. Comparison: Comparison is made to fluoroscopy 02/16/2023 FINDINGS/IMPRESSION: Intraoperative images were obtained of retrograde bilateral cystogram and stent placement. The right nephroureteral stent is in satisfactory position and the final image. Please correlate with intraoperative fluoroscopy and operative report. ACT 112: Negative or not required by law. Electronically signed by: Raul Mary M.D. 02/20/2023 3:44 PM
--- NOTE | 2023-02-20 18:32 | Billing Data ---
Date of Service February 20, 2023 Coding Level of Care Code 20666 SUB INP/OBS CARE
[2023-02-21] MEDS: SODIUM CHLORIDE 0.9% 1,000 ML IV SCH (04:40)
[2023-02-21] MEDS: TAMSULOSIN HCL 0.4 MG CAP PO SCH (08:00)
[2023-02-21] MEDS: CINACALCET HCL 30 MG TAB PO SCH (08:00)
[2023-02-21] MEDS: CIPROFLOXACIN / D5W 400 MG/200 ML BAG IV SCH (08:01)
--- NOTE | 2023-02-21 08:12 | Discharge Summary ---
Date of Service February 21, 2023 Admission HPI Per Admitting Provider The patient is a 47-year-old female with a past medical history including right distal ureteral calculus, hypercalcemia, primary hyperparathyroidism, and bilateral hydronephrosis. She was admitted from 02/15-02/17/2023 due to bilateral hydronephrosis with a 7 mm right distal ureteral stone and a 5 mm left vesicoureteral junction stone. She had bilateral ureteral stents placed on 02/16, and was discharged on oxycodone, Zofran, tamsulosin, Cipro and Cinacalcet. She noted earlier in the day today that one of the stents appeared to be protruding, causing pelvic pain and urinary incontinence. In the emergency department urology removed the right stent, and x-ray revealed that the left stent was out of place. At that point it was decided for the patient to be admitted to the [facility] medicine service Admission Exam Per Admitting Provider The patient is awake, alert and oriented 3, well developed and well nourished, normocephalic and atraumatic, lying in bed and in no acute distress. HEENT--PERRL, EOMI, mucous membranes and oropharynx normal. Neck--supple. No JVD. No bruits. Thyroid normal, trachea midline, no adenopathy. Heart--normal S1 and S2. No murmurs, rubs or gallops. Lungs--clear bilaterally, no respiratory distress, no accessory muscle use. Abdomen--normal bowel sounds and soft. Nontender. Nondistended, no hernias or masses, no organomegaly. Extremities--no cyanosis or clubbing. No edema. Dermatologic--normal skin turgor, normal color, no abnormal lymph nodes, no rash. Neurologic--cranial nerves II through XII grossly intact. Rheumatologic--normal range of motion. Psychiatric--normal affect. Principal Diagnosis Bilateral ureteral stones Discharge Exam Constitutional: well-appearing, no acute distress HEENT: NCAT, no conjunctival injection CV: regular rhythm, no murmur appreciated, extremities well-perfused, no LE edema Resp: CTABL, no wheezes/rales/rhonchi appreciated, no increased work of breathing GI: soft, nondistended, nontender, BS normoactive MSK: no gross deformities appreciated Skin: warm, dry, no rash appreciated Neuro: alert, oriented, no focal neurologic deficit appreciated Discharge Data Allergies Allergy/AdvReac Type Severity Reaction Status Date / Time amoxicillin Allergy SHORT OF Unverified 02/15/23 02:30 BREATH Consultations 02/19/23 02:43 ED Decision to Admit Stat 02/19/23 06:46 Consult Urology Routine Procedures Performed Operation Date: 02/20/23 10:05 Actual Procedures p Cystoscopy, Bilateral Retrograde Pyelogram, Right Ureteral Stent Placement, Bilateral Ureteroscopies, Stone Basket Extraction Right and Left Ureteral Stent Removal - Rancho Bowers, DO Ordered Studies 02/20/23 FL retrograde includes kub Routine KUB X-Ray 02/19/23 01:50 KUB HISTORY: Left-sided kidney stone kidney stone (bilateral) COMPARISON: Fluoroscopic images 02/16/2023, CT abdomen and pelvis 02/15/2023 FINDINGS: Moderate fecal retention in the right hemicolon. The bowel gas pattern is nonobstructive. The renal shadows are obscured by bowel gas. Status post removal of the right ureteral stent. A left ureteral stent is in place which appears to have migrated inferiorly approximately 6 cm. No renal calculi. No ureteral calculi. No pneumoperitoneum or pneumatosis. No fracture. IMPRESSION: 1. Malpositioned left ureteral stent. 2. No renal or ureteral calculi identified. ACT 112: Negative or not required by law. The above report was generated using voice recognition software. It may contain grammatical, syntax or spelling errors. Electronically signed by: Rene Escalante M.D. 02/19/2023 7:22 AM Retrograde Pyelogram 02/20/23 00:00 FL retrograde includes kub CLINICAL HISTORY: BILAT CYSTO STENT TECHNIQUE: 4 views were obtained with the C-arm in the OR with the above procedure. Total fluoroscopy time was 91.6 seconds. Radiation dose was 16.84 mGy. Comparison: Comparison is made to fluoroscopy 02/16/2023 FINDINGS/IMPRESSION: Intraoperative images were obtained of retrograde bilateral cystogram and stent placement. The right nephroureteral stent is in satisfactory position and the final image. Please correlate with intraoperative fluoroscopy and operative report. ACT 112: Negative or not required by law. Electronically signed by: Raul Mary M.D. 02/20/2023 3:44 PM Hospital Course (1) Mechanical complication of ureteral stent: (2) Calculus of distal left ureter: (3) Right distal ureteral calculus: (4) Bilateral hydronephrosis: (5) Primary hyperparathyroidism: (6) Hypercalcemia: Plan #Bilateral ureteral stent complication/bilateral distal ureteral calculi -Right ureteral stent was externally visible, and removed by urology in the ED -Left ureteral stent malposition on KUB. -Urine cultures pending. -Urology consulted -NSS at 80 mL/h -Cipro 40 mg IV every 12 hours. As needed pain and nausea medications on board. -Tamsulosin daily -Patient had stone removal in the OR on 02/20. -Patient will see urology on Friday to have right ureteral stent removed. Should remain on Cipro for the next 3 days. -She will follow-up with PCP in 1 to 2 weeks. Should order BMP at that time. #Primary hyperparathyroidism/hypercalcemia -Calcium is now increased to 12.1 -Labs from 02/16/2023: 25 hydroxy vitamin D 15.3, intact PTH 210.1 -IV fluids as noted above -Pamidronate x1 on admission, started on Sensipar 30 mg twice daily. -Patient states that the Sensipar is too expensive for her to afford. She will follow-up with PCP other options. -Patient may need definitive diagnosis of primary hyperparathyroidism which could be done with a 24-hour calcium and creatinine urine excretion. -Ultimately may need parathyroid removal. Will refer to PCP about further care. Total Time Total Time Spent Total Time Spent (In Minutes): <30 Discharge Plan Discharge Items Patient Disposition: Home - Self-Care Reason For Visit: URETERAL STENT COMPLICATION, HYPERCALCEMIA Discharge Diagnosis: Ureteral Stent complication Condition on Discharge: Good Activity: Resume your previous activity Non-emergency contact: Primary Care Provider and Urologist Call non-emergency contact if: you have any medication questions, your pain is unusual for you and your temperature is above 101.5 Follow-up/Referrals: Rancho Bowers DO [Physician] - 02/25/23 2:00 pm (Appointment on 02/25/2023 at 1400) Amaris Mariscal DO [Primary Care Provider] - 02/24/23 7:45 am (DR CARDENAS) Diet: Dialysis Renal Addtl Attending Provider Instructions: You were admitted to the hospital for protruding ureteral stent. Your symptoms improved with removal of the stent and stone removed. You still have a stent in your right ureter, you follow-up with urology on 02/25/2023 to have stent removed. A discharge summary will be sent to your primary care physician to ensure continuity of care. Please bring this discharge summary with you to your next office appointment so that your provider can review it at that time. Follow-up appointments: * Make a follow-up appointment with your PCP within the next week. It is very important that you follow up with them shortly after discharge from the hospital. * You are scheduled with Dr. Bowers on 02/25/2023 at 2 PM. Please keep this appointment. If you are unable to make this appointment, please call his office at [phone]. * Keep all your follow-up appointments as already scheduled. If you cannot make an appointment, notify your provider. Medications: Your medication list has been reviewed and reconciled upon discharge to ensure accuracy and continuity of care. An updated list of all your medications is included with your hospital discharge paperwork. Please review this list closely, and make note of any changes. * You should continue on ciprofloxacin 500 mg twice a day for the next 3 days. A prescription was already sent into your pharmacy previously, you should have this medication at home at this time. * If you have any issues filling these prescriptions, please call [phone] and ask to leave a message for Dr. Mujica. * Take your medications as instructed; do not skip a dose of your medicines. Make sure all of your doctors know every medicine you are taking (including axjr-tcp-cajkyff medicines, vitamins, and supplements). Call your primary care provider before taking any new medicines (including over- the-counter medicines, vitamins, and supplements), because some of these may interact with your current medications, or may make your symptoms worse. Tell your primary care provider if you cannot afford your medications. CONTACT YOUR PRIMARY CARE PROVIDER if you experience any of the following: * Worsening of symptoms * Fever, chills, or fatigue * Difficulty following your treatment plan, or difficulty taking medications CALL 911 OR GO TO THE EMERGENCY DEPARTMENT if you experience any of the following: * Sudden, severe abdominal pain or nausea/vomiting * Severe chest pain, or chest pain that radiates (moves) to your jaw or arm * Sudden, severe shortness of breath or difficulty breathing Thank you for allowing us to participate in your care. Pending Studies at Discharge: No Stand-Alone Forms: My [facility], Smoking Cessation Medications and DC Order Prescriptions: New cholecalciferol (vitamin D3) [Vitamin D3] 50 mcg (2,000 unit) capsule 50 mcg PO DAILY Qty: 30 0RF Continued ciprofloxacin HCl 500 mg tablet 500 mg PO BID 4 Days Qty: 8 0RF cinacalcet [Sensipar] 30 mg tablet 30 mg PO BID 30 Days Qty: 60 0RF aspirin 325 mg Tablet 325 - 650 mg PO DAILY PRN (Reason: Pain) acetaminophen [Tylenol Extra Strength] 500 mg Tablet 500 mg PO Q6H PRN (Reason: Pain) oxycodone 5 mg tablet 5 mg PO Q6H PRN (Reason: pain) Qty: 12 0RF tamsulosin [Flomax] 0.4 mg capsule 0.4 mg PO DAILY Qty: 5 0RF ondansetron 4 mg tablet,disintegrating 4 - 8 mg PO Q8H PRN (Reason: nausea and vomiting) Qty: 14 0RF Discharge Orders: Discharge Order (Routine); Ordered 02/21/23 Ordered By: Дмитрий Chung/Other Patient Handouts: Having a Ureteral Stent Admission Data Admit Date/Time: 02/19/23 03:42 Attending Provider: Taurus Garcias Admit Provider: Star Patton Primary Care Provider: Amaris Mariscal Other Providers: Star Patton ; Marcelino Stewart Other Interventions: Discharge Summary Assessment (RN) Last Done: 02/21/23 11:51 Supervising Physician Co-Signing Physician Notes I personally examined the patient and verified all ace points of history and exam, discussed case, and agree with decision making with Dr Sil robbins reasonably and feels up to going home. Vitals noted, in general she is awake and alert pleasant no distress. HEENT normocephalic atraumatic mucous membranes moist. Breathing unlabored no accessory muscle use good effort. Skin shows no rashes no pallor or icterus. Neuro without focal deficits. Ureterolithiasis and stent issuesstatus post OR again 02/20. feels up to going home. otherwise as above primary hyperparathyroidismlikely to need treatment beyond med management. Discussed overall plan. PCP will assume care in this regard. otherwise as above Resident Activity Tracking Resident Involvement: Resident Care Provided Care Provided: Adult Hospital Medicine
--- NOTE | 2023-02-21 09:38 | Urology Progress Note ---
Date of Service February 21, 2023 Assessment & Plan (1) Right distal ureteral calculus: Plan: 47yo/F who was found to have bilateral ureteral stones and underwent bilateral ureteral stent placement on 02/16/23 readmitted due to stent malposition- Right stent now out; Malpositioned left ureteral stent. - Pt POD#1 s/p Cystoscopy, b/l Retrograde Pyelogram, R URS, basket stone extraction, R stent placement, L Diagnostic URS and Ureteral Stent Removal - Doing well, progressing as expected - Afebrile, stable vitals, no new labs today - Tolerating right ureteral stent with minimal bother - Okay to d/c from perspective when medically stable - Recommend d/c with course Tamsulosin, prn Pyridium, and prn analgesia for stent management - Expected clinical course reviewed, all questions answered - Follow-up in place for her stent removal - will sign off Admission and Anticipated Discharge Date Admission Date: February 19, 2023 Subjective Patient seen and examined at bedside this morning No acute issues overnight Subjectively doing well Tolerating right ureteral stent Voiding without difficulty No nausea, vomiting, fever or chills Review of Systems Constitutional: as per Subjective / HPI Gastrointestinal: as per Subjective / HPI Genitourinary: as per Subjective / HPI Physical Exam Physical Exam: General: well-appearing, no acute distress HEENT: Normocephalic, mucous membranes moist Pulmonary: Nonlabored respirations Abdomen: Nondistended Extremities: Moves all 4 spontaneously Neuro: No gross deficits Psych: alert and oriented, normal mood Skin: Warm, dry, no rashes noted Results & Data Vital Signs (Past 12 Hours) Vital Signs Temp Pulse Resp BP Pulse Ox O2 Del Method 02/21/23 07:30 36.6 C 77 17 119/73 98 Room Air 02/21/23 00:34 36.9 C 74 16 138/83 94 Room Air PG Care Time/CCT Total # of Minutes Spent Total Time Spent with Patient: Total time spent is greater than 50% in coordination of care (as documented) at patient's floor/unit and/or counseling patient: Coding Level of Care Code 53648 SUB INP/OBS CARE 25MIN Diagnoses Right distal ureteral calculus N20.1
--- NOTE | 2023-02-21 18:23 | Billing Data ---
Date of Service February 21, 2023 Coding Level of Care Code 66963 IN/OBS DISCH 30 MIN/LESS
[2023-02-28 14:03] LABS: Component 2 DNR; Source URETER
== END 2023-02-21 13:30 | disposition home or self-care (01) | DRG 660 ==
LOC: ED → INTOOBSV 03:42 → SUATTDRO 03:42 → 3W 03:42